=== PATIENT | female | born 1940 | race Caucasian/White ===

== ENCOUNTER 2020-05-26 07:07 | Inpatient (IN) | payer MEDICARE, SELFPAY ==
[2020-05-26] VITALS (11 sets, daily range): BP systolic 115–141; BP diastolic 66–77; PULSE 71–87; RESP 16–19; TEMP 36.4–37; O2SAT 96–99; BMI 19.6
--- NOTE | 2020-05-26 07:40 | ED_ITS ---
HPI - Abdominal Pain General Chief Complaint: Abdominal Pain Stated Complaint: abdominal pain Time Seen by Provider: 05/26/20 07:40 Source: patient Mode of arrival: ambulatory Limitations: no limitations History of Present Illness MD elicited complaint: abdominal pain and other (bloody mucousy stools) Pertinent past history: none Onset (ago): day(s) (3) Pain Consistency: constant Location: RLQ, LLQ and suprapubic Severity: moderate Quality: cramping Radiation: none Migration to: no migration Exacerbating factors: movement Relieving factors: nothing Associated symptoms: nausea, diarrhea, chills, hematochezia and other (also c/o sore throat x 1 week) Treatments prior to arrival: NSAIDs (advil, takes baby ASA no AC therapy) Related Data Allergies Allergy/AdvReac Type Severity Reaction Status Date / Time No Known Allergies Allergy Verified 05/26/20 07:50 Review of Systems Review of Systems Constitutional : No Weight loss, No Fever, No Chills ENT/Mouth : pos sore throat, No Rhinorrhea Eyes: No Swelling, No Redness Cardiovascular : No Chest Pain, No SOB, NoEdema Respiratory : No Cough, No Sputum, No Wheezing Gastrointestinal : Positive Nausea, Positive Vomiting, positive Diarrhea, positive abdominal Pain, pos Hematochezia, No Melena Genitourinary : No Dysuria, No Urinary Frequency, No Hematuria, No Urgency Musculoskeletal : No joint pain, No Myalgias, No Joint Swelling Skin : No Skin Lesions, No rash Neuro : No Weakness, No Numbness, No Dizziness, No Headache Psych : No Anxiety/Panic, No Depression Heme/Lymph: No Bruising, No Lymphadenopathy Endocrine : No Polyuria, No Polydipsia All other systems reviewed and are negative. Physical Exam Vital Signs: Vital Signs: Last Vital Signs Temp 98.6 F 05/26/20 10:48 Pulse 76 05/26/20 10:48 Resp 18 05/26/20 10:48 BP 137/76 05/26/20 10:48 Pulse Ox 96 05/26/20 10:48 Body Mass Index 19.6 Appearance: Alert. Oriented X3. No acute distress. Eyes: Pupils equal, round and reactive to light. ENT: Pharynx normal. Neck: Normal inspection. Neck supple. CVS: Normal heart rate and rhythm. Pulses normal. Respiratory: No respiratory distress. Breath sounds normal. Abdomen: Soft and mild suprapubic tenderness no rebound or guarding. Skin: Skin warm and dry. Normal skin color. Normal skin turgor. Extremities: No lower extremity edema. No calf ttp Neuro: Oriented X 3. No motor deficit. No sensory deficit. Course Course Course Narrative: will admit for further workup and management given colitis, start on empiric antibiotics and keep for fluids and pain control MDM - Abdominal Pain MDM Narrative Medical decision making narrative: 80 yo female with hx of AVR, HPL here with lower abdominal pain x 3 days preceded by sore throat now with bloody mucousy stools - no recent antibiotics will need labs, CT scan for colitis, IVF, cultures, stool studies, IV Morphine for pain, dispo per results and findings, on baby ASA, has had normal colonoscopy in the past per her Lab Data Result diagrams: 05/26/20 08:18 05/26/20 08:18 Labs: Lab Results 05/26/20 05/26/20 05/26/20 Range/Units 08:17 08:17 08:17 WBC (4.8-10.8) X10*3/uL RBC (4.20-5.50) X10*6/uL Hgb (12.0-16.0) g/dl Hct (37-47) % MCV (80-98) fL MCH (27.0-33.0) pg MCHC (31.0-35.0) g/dl RDW (11.0-16.0) % Plt Count (160-400) X10*3/uL MPV (9.4-12.3) fL Immature Gran % (Auto) (0.0-0.4) % Neut % (Auto) (45-73) % Lymph % (Auto) (20-40) % [place] % (Auto) (2-11) % Eos % (Auto) (0-4) % Baso % (Auto) (0-2) % Lymph # (Auto) (1.2-4.9) X10*3/uL [place] # (Auto) (0.1-1.2) X10*3/uL Eos # (Auto) (0.0-0.4) X10*3/uL Baso # (Auto) (0.0-0.2) X10*3/uL Abs Immat Gran (auto) (0.00-0.03) X10*3/uL Absolute Neuts (auto) (2.0-8.3) X10*3/uL Absolute Nucleated RBC (0.0-0.012) X10*3/uL Nucleated RBC % (auto) (0.0-0.2) /100WBC PT 11.9 (10.8-13.0) SEC INR 1.0 (0.9-1.1) APTT 37.2 (24.1-38.0) SEC Sodium (135-145) mmol/L Potassium (3.3-5.1) mmol/l Chloride (96-108) mmol/L Carbon Dioxide (22-29) mmol/L Anion Gap (12-20) BUN (9-16) mg/dL Creatinine (0.5-1.4) mg/dL Estim Creat Clear Calc Estimated GFR Random Glucose (60-115) mg/dL Lactic Acid 0.8 (0.5-2.0) mmol/L Calcium (8.4-10.2) mg/dL Magnesium 2.1 (1.6-2.6) mg/dL Total Bilirubin 0.5 (0.0-1.0) mg/dL Direct Bilirubin 0.3 (0.0-0.5) mg/dL AST 18 (5-31) U/L ALT 14 (0-31) U/L Alkaline Phosphatase 59 (39-117) U/L Total Protein 6.5 (6.5-8.0) g/dL Albumin 4.0 (3.5-5.0) g/dL Lipase 33 (8-78) U/L Urine Color Urine Appearance Urine pH (5.0-8.0) Ur Specific [place] (1.005-1.025) Urine Protein (NEG-TRACE) MG/DL Urine Glucose (UA) (NEG) MG/DL Urine Ketones (NEG) MG/DL Urine Blood (NEG) Urine Nitrite (NEG) Ur Leukocyte Esterase (NEG) COVID-19 (SHANIQUA) (Negative) COVID-19 Clin Com 05/26/20 05/26/20 05/26/20 Range/Units 08:18 08:18 08:19 WBC 7.7 (4.8-10.8) X10*3/uL RBC 4.32 (4.20-5.50) X10*6/uL Hgb 13.7 (12.0-16.0) g/dl Hct 40.8 (37-47) % MCV 94.4 (80-98) fL MCH 31.7 (27.0-33.0) pg MCHC 33.6 (31.0-35.0) g/dl RDW 13.5 (11.0-16.0) % Plt Count 282 (160-400) X10*3/uL MPV 10.1 (9.4-12.3) fL Immature Gran % (Auto) 0.4 (0.0-0.4) % Neut % (Auto) 66.2 (45-73) % Lymph % (Auto) 12.4 L (20-40) % [place] % (Auto) 17.9 H (2-11) % Eos % (Auto) 2.2 (0-4) % Baso % (Auto) 0.9 (0-2) % Lymph # (Auto) 1.0 L (1.2-4.9) X10*3/uL [place] # (Auto) 1.4 H (0.1-1.2) X10*3/uL Eos # (Auto) 0.2 (0.0-0.4) X10*3/uL Baso # (Auto) 0.1 (0.0-0.2) X10*3/uL Abs Immat Gran (auto) 0.03 (0.00-0.03) X10*3/uL Absolute Neuts (auto) 5.1 (2.0-8.3) X10*3/uL Absolute Nucleated RBC 0.000 (0.0-0.012) X10*3/uL Nucleated RBC % (auto) 0.0 (0.0-0.2) /100WBC PT (10.8-13.0) SEC INR (0.9-1.1) APTT (24.1-38.0) SEC Sodium 141 (135-145) mmol/L Potassium 3.9 (3.3-5.1) mmol/l Chloride 104 (96-108) mmol/L Carbon Dioxide 28 (22-29) mmol/L Anion Gap 13 (12-20) BUN 9 (9-16) mg/dL Creatinine 0.67 (0.5-1.4) mg/dL Estim Creat Clear Calc 54.0 Estimated GFR > 60 Random Glucose 103 (60-115) mg/dL Lactic Acid (0.5-2.0) mmol/L Calcium 9.2 (8.4-10.2) mg/dL Magnesium (1.6-2.6) mg/dL Total Bilirubin (0.0-1.0) mg/dL Direct Bilirubin (0.0-0.5) mg/dL AST (5-31) U/L ALT (0-31) U/L Alkaline Phosphatase (39-117) U/L Total Protein (6.5-8.0) g/dL Albumin (3.5-5.0) g/dL Lipase (8-78) U/L Urine Color Urine Appearance Urine pH (5.0-8.0) Ur Specific [place] (1.005-1.025) Urine Protein (NEG-TRACE) MG/DL Urine Glucose (UA) (NEG) MG/DL Urine Ketones (NEG) MG/DL Urine Blood (NEG) Urine Nitrite (NEG) Ur Leukocyte Esterase (NEG) COVID-19 (SHANIQUA) Negative (Negative) COVID-19 Clin Com See Note 05/26/20 Range/Units 10:23 WBC (4.8-10.8) X10*3/uL RBC (4.20-5.50) X10*6/uL Hgb (12.0-16.0) g/dl Hct (37-47) % MCV (80-98) fL MCH (27.0-33.0) pg MCHC (31.0-35.0) g/dl RDW (11.0-16.0) % Plt Count (160-400) X10*3/uL MPV (9.4-12.3) fL Immature Gran % (Auto) (0.0-0.4) % Neut % (Auto) (45-73) % Lymph % (Auto) (20-40) % [place] % (Auto) (2-11) % Eos % (Auto) (0-4) % Baso % (Auto) (0-2) % Lymph # (Auto) (1.2-4.9) X10*3/uL [place] # (Auto) (0.1-1.2) X10*3/uL Eos # (Auto) (0.0-0.4) X10*3/uL Baso # (Auto) (0.0-0.2) X10*3/uL Abs Immat Gran (auto) (0.00-0.03) X10*3/uL Absolute Neuts (auto) (2.0-8.3) X10*3/uL Absolute Nucleated RBC (0.0-0.012) X10*3/uL Nucleated RBC % (auto) (0.0-0.2) /100WBC PT (10.8-13.0) SEC INR (0.9-1.1) APTT (24.1-38.0) SEC Sodium (135-145) mmol/L Potassium (3.3-5.1) mmol/l Chloride (96-108) mmol/L Carbon Dioxide (22-29) mmol/L Anion Gap (12-20) BUN (9-16) mg/dL Creatinine (0.5-1.4) mg/dL Estim Creat Clear Calc Estimated GFR Random Glucose (60-115) mg/dL Lactic Acid (0.5-2.0) mmol/L Calcium (8.4-10.2) mg/dL Magnesium (1.6-2.6) mg/dL Total Bilirubin (0.0-1.0) mg/dL Direct Bilirubin (0.0-0.5) mg/dL AST (5-31) U/L ALT (0-31) U/L Alkaline Phosphatase (39-117) U/L Total Protein (6.5-8.0) g/dL Albumin (3.5-5.0) g/dL Lipase (8-78) U/L Urine Color YELLOW Urine Appearance CLEAR Urine pH 5.5 (5.0-8.0) Ur Specific [place] <= 1.005 (1.005-1.025) Urine Protein NEG (NEG-TRACE) MG/DL Urine Glucose (UA) NEG (NEG) MG/DL Urine Ketones 15 (NEG) MG/DL Urine Blood NEG (NEG) Urine Nitrite NEG (NEG) Ur Leukocyte Esterase NEG (NEG) COVID-19 (SHANIQUA) (Negative) COVID-19 Clin Com Discharge Plan Discharge Clinical Impression: Pancolitis Abdominal pain Qualifiers: Abdominal location: lower abdomen, unspecified Qualified Code(s): R10.30 - Lower abdominal pain, unspecified Patient Disposition: Admitted As Inpatient [facility] Past Medical History Attestation statement: The following information was validated with the patient. Medical History High cholesterol Surgical History H/O aortic valve repair H/O: hysterectomy Social History Social History (Updated 05/26/20 @ 08:01 by Kendra Esparza DO) Smoking Status: Never smoker Use of substances other than those prescribed or required for medical reasons: No Advance Directives: No Advance Directives Information Provided: Yes
--- NOTE | 2020-05-26 07:50 | CT_ITS ---
EXAMINATION: CT ABDOMEN AND PELVIS WITH CONTRAST CLINICAL INFORMATION: Bloody stools. COMPARISON: None TECHNIQUE: Multidetector volumetric images were obtained from the superior aspect of the liver through the pubic symphysis following administration 85 mL of Omnipaque 350 intravenous contrast. Sagittal and coronal reformatted images were obtained on the technologist's workstation. Oral contrast: No This CT examination was performed using dose optimization techniques as appropriate, variously including the following: *Automated exposure control *Adjustment of mA and/or kV according to patient size (this includes techniques or standardized protocols for targeted exams where dose is matched to indication/reason for exam; i.e. extremities or head) *Use of iterative reconstruction technique DLP: 369 mGy-cm FINDINGS: LUNG BASES: There is minimal dependent atelectasis. LIVER, GALLBLADDER, AND BILIARY TREE: The liver is normal in size, shape, and attenuation. No focal hepatic lesion or biliary ductal dilatation is present. The gallbladder is unremarkable with no evidence of radiopaque gallstones, gallbladder wall thickening, or obvious pericholecystic inflammatory changes. PANCREAS: Unremarkable. SPLEEN: Unremarkable. ADRENAL GLANDS: Unremarkable. KIDNEYS AND URETERS: The kidneys are normal in size, shape, and attenuation. No hydronephrosis, hydroureter, or calculi seen. No perinephric stranding. BLADDER: Unremarkable. GASTROINTESTINAL TRACT: There is scattered stool seen throughout the colon. There is mild mural thickening involving the distal descending, transverse sigmoid colon likely secondary to colitis. There are very few scattered diverticuli in the sigmoid colon. The small bowel loops are normal caliber. ABDOMINAL WALL: No significant hernia is appreciated. LYMPH NODES: Normal. VASCULAR: Unremarkable. PELVIC VISCERA: There is mild thickening of the rectum as well. OSSEOUS STRUCTURES: There are degenerative disc changes L2-L3, L3-L4 and L4-L5 disc levels with vacuum disc phenomena and mild ventral spondylosis. No lytic CT/CT abdomen pelvis w con IMPRESSION: Diffuse colitis involving the descending, left transverse and sigmoid: The rectum. A few scattered diverticuli but no suspicion for diverticulitis.
[2020-05-26] MEDS: Morphine Sulfate 4 MG/ML CARTRIDGE 2 MG IVPUSH (08:22)
[2020-05-26] MEDS: 0.9 % Sodium Chloride 500 ML IV (08:22)
[2020-05-26] MEDS: ondansetron HCL 4 MG/2 ML VIAL IVPUSH (08:23)
[2020-05-26 08:35] LABS: MANUAL DIFF FLAG NO
[2020-05-26 08:45] LABS: Basophils Absolute Auto 0.1 X10*3/uL (0.0-0.2); Basophils Percent Auto 0.9 % (0-2); Eosinophils Absolute Auto 0.2 X10*3/uL (0.0-0.4); Eosinophils Percent Auto 2.2 % (0-4); Hematocrit 40.8 % (37-47); Hemoglobin 13.7 g/dl (12.0-16.0); Imm Gran Abs Auto 0.03 X10*3/uL (0.00-0.03); Imm Gran Pct Auto 0.4 % (0.0-0.4); Lymphocytes Percent Auto 12.4 % (20-40); Mean Corpuscular HGB Conc 33.6 g/dl (31.0-35.0); Mean Corpuscular Hemoglobin 31.7 pg (27.0-33.0); Mean Corpuscular Volume 94.4 fL (80-98); Mean Platelet Volume 10.1 fL (9.4-12.3); Monocytes Absolute Auto 1.4 X10*3/uL (0.1-1.2); Monocytes Percent Auto 17.9 % (2-11); Neutrophils Absolute Auto 5.1 X10*3/uL (2.0-8.3); Neutrophils Percent Auto 66.2 % (45-73); Platelet Count 282 X10*3/uL (160-400); Red Blood Count 4.32 X10*6/uL (4.20-5.50); Red Cell Distribution Width 13.5 % (11.0-16.0); White Blood Count 7.7 X10*3/uL (4.8-10.8)
[2020-05-26 08:47] LABS: Prothrombin Time 11.9 SEC (10.8-13.0)
[2020-05-26 08:47] LABS: COVID-19 Test Negative (Negative)
[2020-05-26 08:50] LABS: Partial Thromboplastin Time 37.2 SEC (24.1-38.0)
[2020-05-26 09:10] LABS: Lactic Acid 0.8 mmol/L (0.5-2.0)
[2020-05-26 09:22] LABS: Anion Gap 13 (12-20); Blood Urea Nitrogen 9 mg/dL (9-16); Calcium 9.2 mg/dL (8.4-10.2); Carbon Dioxide 28 mmol/L (22-29); Chloride 104 mmol/L (96-108); Estimated Glomerular Filt Rate > 60; Glucose Random 103 mg/dL (60-115); Potassium 3.9 mmol/l (3.3-5.1); Sodium 141 mmol/L (135-145)
[2020-05-26 09:26] LABS: Alanine Aminotransferase 14 U/L (0-31); Alkaline Phosphatase 59 U/L (39-117); Aspartate Amino Transferase 18 U/L (5-31); Bilirubin Direct 0.3 mg/dL (0.0-0.5); Bilirubin Total 0.5 mg/dL (0.0-1.0); Lipase 33 U/L (8-78); Magnesium 2.1 mg/dL (1.6-2.6); Total Protein 6.5 g/dL (6.5-8.0)
[2020-05-26] MEDS: iohexoL 350 MG/ML 100 ML INFUS..BTL IV (09:54)
[2020-05-26 10:45] LABS: Glucose Urine UA NEG (NEG); Leukocyte Esterase Urine NEG (NEG); Nitrite Urine NEG (NEG); PH 5.5 (5.0-8.0); Specific Gravity - Urine <= 1.005 (1.005-1.025); Urine Blood NEG (NEG); Urine Ketones 15 MG/DL (NEG); Urine Protein NEG (NEG-TRACE)
[2020-05-26 10:57] LABS: Appearance Urine CLEAR; Color Urine YELLOW
[2020-05-26] MEDS: levoFLOXacin/D5W 250 MG/50 ML PIGGYBACK 50 MG IV (11:12)
[2020-05-26 11:28] LABS: OBS Int Ctl Valid YES; OBS1 NEG (NEG)
--- NOTE | 2020-05-26 11:40 | PM.IMHP ---
History of Present Illness Date of Service: 05/26/20 Chief Complaint: Abdominal pain This is an 80-year-old female with a history of bovine aortic valve who presents to the emergency department with abdominal pain. She reports intermittent abdominal pain over the past month or so. For the past 1 week the pain has become more severe. She describes the pain as crampy and sharp in nature and worse in her left lower quadrant but present in bilateral lower quadrants. She reports she has had associated diarrhea with mucus numerous times a day. This morning she had an episode of diarrhea mixed with maroon stool. She has been able to tolerate liquid and denies any vomiting. She has had no previous similar episodes in the past. She has never seen a GI doctor. She denies any associated fever or chills. Today in emergency department she was afebrile. Labs were unremarkable. CT scan revealed diffuse colitis. She denies recent antibiotic use or recent hospitalization. She was started on IV antibiotics and decision was made to admit her for further workup. Review of Systems Review of Systems: Yes all other systems are reviewed and are negative Constitutional: Constitutional: Denies chills and Denies fever(s) Cardiovascular: Cardiovascular: Denies chest pain and Denies dyspnea Respiratory: Respiratory: Denies cough and Denies dyspnea Gastrointestinal: Gastrointestinal: Reports abdominal pain, Reports diarrhea, Denies nausea and Denies vomiting [facility] Medical History (Updated 05/26/20 @ 11:50 by ADRIANE Salguero) High cholesterol Functional capacity: independent ambulation Family History Mother Glioblastoma Surgical History H/O aortic valve repair H/O: hysterectomy Social History (Updated 05/26/20 @ 11:48 by ADRIANE Salguero) Alcohol intake: current Alcohol intake frequency: 0-2 drinks per day Smoking Status: Never smoker Use of substances other than those prescribed or required for medical reasons: No Advance Directives: No Advance Directives Information Provided: Yes Meds Allergies Allergy/AdvReac Type Severity Reaction Status Date / Time No Known Allergies Allergy Verified 05/26/20 07:50 Home Medications Medication Instructions Recorded Confirmed Type aspirin 81 mg PO DAILY 05/26/20 05/26/20 History ezetimibe 10 mg PO DAILY 05/26/20 05/26/20 History multivitamin 1 tab PO DAILY 05/26/20 05/26/20 History pravastatin 20 mg PO DAILY 05/26/20 05/26/20 History Physical Exam Vital Signs and Narrative: Vital Signs: Last Vital Signs Temp 98.6 F 05/26/20 10:48 Pulse 76 05/26/20 10:48 Resp 18 05/26/20 10:48 BP 137/76 05/26/20 10:48 Pulse Ox 96 05/26/20 10:48 Body Mass Index 19.6 Const: Nutritional Appearance: well nourished Orientation/consciousness: patient oriented x3 HENMT: Head: Yes normocephalic and Yes atraumatic Eyes: Sclerae: sclerae normal Chest: Chest palpation & inspection: normal inspection of the chest Resp: Effort & Inspection: normal respiratory effort and no respiratory distress Auscultation: clear to auscultation bilaterally Cardio: Rate: regular rate Rhythm: regular rhythm Heart sounds: Murmur heart sound present GI: Palpation (GI): Soft to palpation and nontender Skin: General skin exam: no rashes or lesions noted Neuro: General: patient oriented x3 Cranial nerves: Yes CN's II-XII intact bilaterally and Yes Bilaterally intact EOM present Extrem: General: Yes normal to inspection Results Labs CBC and Chem 7: 05/26/20 08:18 05/26/20 08:18 Labs: Laboratory Results - last 24 hr 05/26/20 05/26/20 05/26/20 08:17 08:17 08:17 MCV MCH MCHC RDW Plt Count MPV Immature Gran % (Auto) Neut % (Auto) Lymph % (Auto) [place] % (Auto) Eos % (Auto) Baso % (Auto) Lymph # (Auto) [place] # (Auto) Eos # (Auto) Baso # (Auto) Abs Immat Gran (auto) Absolute Neuts (auto) Absolute Nucleated RBC Nucleated RBC % (auto) PT 11.9 INR 1.0 APTT 37.2 Anion Gap Estim Creat Clear Calc Estimated GFR Random Glucose Lactic Acid 0.8 Calcium Magnesium 2.1 Total Bilirubin 0.5 Direct Bilirubin 0.3 AST 18 ALT 14 Alkaline Phosphatase 59 Total Protein 6.5 Albumin 4.0 Lipase 33 Urine Color Urine Appearance Urine pH Ur Specific [place] Urine Protein Urine Glucose (UA) Urine Ketones Urine Blood Urine Nitrite Ur Leukocyte Esterase Stool Occult Blood COVID-19 (SHANIQUA) COVID-19 Clin Com 05/26/20 05/26/20 05/26/20 08:18 08:18 08:19 MCV 94.4 MCH 31.7 MCHC 33.6 RDW 13.5 Plt Count 282 MPV 10.1 Immature Gran % (Auto) 0.4 Neut % (Auto) 66.2 Lymph % (Auto) 12.4 L [place] % (Auto) 17.9 H Eos % (Auto) 2.2 Baso % (Auto) 0.9 Lymph # (Auto) 1.0 L [place] # (Auto) 1.4 H Eos # (Auto) 0.2 Baso # (Auto) 0.1 Abs Immat Gran (auto) 0.03 Absolute Neuts (auto) 5.1 Absolute Nucleated RBC 0.000 Nucleated RBC % (auto) 0.0 PT INR APTT Anion Gap 13 Estim Creat Clear Calc 54.0 Estimated GFR > 60 Random Glucose 103 Lactic Acid Calcium 9.2 Magnesium Total Bilirubin Direct Bilirubin AST ALT Alkaline Phosphatase Total Protein Albumin Lipase Urine Color Urine Appearance Urine pH Ur Specific [place] Urine Protein Urine Glucose (UA) Urine Ketones Urine Blood Urine Nitrite Ur Leukocyte Esterase Stool Occult Blood COVID-19 (SHANIQUA) Negative COVID-19 Clin Com See Note 05/26/20 05/26/20 10:23 10:53 MCV MCH MCHC RDW Plt Count MPV Immature Gran % (Auto) Neut % (Auto) Lymph % (Auto) [place] % (Auto) Eos % (Auto) Baso % (Auto) Lymph # (Auto) [place] # (Auto) Eos # (Auto) Baso # (Auto) Abs Immat Gran (auto) Absolute Neuts (auto) Absolute Nucleated RBC Nucleated RBC % (auto) PT INR APTT Anion Gap Estim Creat Clear Calc Estimated GFR Random Glucose Lactic Acid Calcium Magnesium Total Bilirubin Direct Bilirubin AST ALT Alkaline Phosphatase Total Protein Albumin Lipase Urine Color YELLOW Urine Appearance CLEAR Urine pH 5.5 Ur Specific [place] <= 1.005 Urine Protein NEG Urine Glucose (UA) NEG Urine Ketones 15 Urine Blood NEG Urine Nitrite NEG Ur Leukocyte Esterase NEG Stool Occult Blood NEG COVID-19 (SHANIQUA) COVID-19 Clin Com Imaging Radiologist's Impressions: Impressions Abdomen/Pelvis CT 05/26/20 07:50 IMPRESSION: Diffuse colitis involving the descending, left transverse and sigmoid: The rectum. A few scattered diverticuli but no suspicion for diverticulitis. Assessment and Plan (1) Colitis: Status: Acute This is an 80-year-old female with history of dyslipidemia and bovine aortic valve replacement who presents the emergency department with abdominal pain found to have colitis Colitis No evidence of sepsis Lactic acid normal Infectious versus inflammatory versus ischemic IV antibiotics Clear liquid diet GI evaluation Stool studies HLD continue home statin, zetia DVT prophylaxis-mechanical devices This case was discussed with Dr. Humphreys
--- NOTE | 2020-05-26 11:53 | PM.EVENT ---
Event Note Date of Service: 05/26/20 Event Note: Patient seen and examined independently and was present during aranda portion of E/M service. Agree with midlevel's history, physical, assessment, and plan. 80F prsented with mucus and blood in stool left sided colitis ischemic vs infectious vs inflammatory anitiboics ivf gi eval check cdif, stool cultures
[2020-05-26] MEDS: metroNIDAZOLE/NS 500 MG/100 ML PIGGYBACK 100 MG IV ×2 (12:20→19:31)
[2020-05-26 13:26] LABS: C Reactive Protein 1.47 mg/dL (< or = 0.50); Lactate Dehydrogenase 205 U/L (122-220)
--- NOTE | 2020-05-26 14:12 | PC.NURSE ---
Nurse to nurse report called to Carmen on . pt PMH, presentation, treatments, condition and VS trends reviewed.
--- NOTE | 2020-05-26 15:02 | PM.GICN ---
History of Present Illness Data of Consult Service Date: 05/26/20 Requesting physician: Sheree Boykin Primary Care Provider: Ashwin Phoenix MD [facility] Reason for consult: Abdominal pain and CT that raises ? colitis. 80 yo female who was sitting in chair wrapped up in her jacket, looking tired. She was very slow with her responses. History obtained directly from this nice lady was limited. Most of hx is obtained through EMR from ER and admission. There had been diarrhea and at least one(?) of mucous with maroun stool. She had been experiencing lower abdominal pain. No documented fevers. Review of Systems Review of Systems: Yes Unobtainable due to mental status (Patient very anxious having trouble with specific answers @ this time.) Cardiovascular: Cardiovascular: Reports Abdominal Distension and Denies chest pain Respiratory: Respiratory: Reports no additional respiratory complaints Comments: when talking she seems short of breath but denies trouble breathing Gastrointestinal: Gastrointestinal: Reports abdominal pain, Reports GI cramping and Reports other Comments: she is rubbing her lower abdominal suprpubic area. Psychiatric: Psychiatric: Reports anxiety PMFSH Past Medical History Medical History (Updated 05/28/20 @ 07:15 by Twyla Smith MD) High cholesterol Hx of aortic valve stenosis Functional capacity: independent ambulation Family History Family History Mother Glioblastoma Surgical History Surgical History (Updated 05/28/20 @ 09:12 by Twyla Smith MD) H/O aortic valve repair H/O: hysterectomy Hx of colonoscopy Social History Social History (Updated 05/26/20 @ 11:48 by ADRIANE Salguero) Household Members: None Housing: House Do you presently have visiting nurse or other home services: No Alcohol intake: current Alcohol intake frequency: 0-2 drinks per day Smoking Status: Never smoker Use of substances other than those prescribed or required for medical reasons: No Currently Displaying Signs/Symptoms of Drug Intoxication Withdrawal: No Have you been hit, kicked, punched, or otherwise hurt by someone within the past year? If so, by whom?: No Do you feel safe in your current relationship?: No Current Relationship Is there a partner from a previous relationship who is making you feel unsafe now?: No Are you made to feel afraid or neglected: No Advance Directives: No Advance Directives Information Provided: Yes Do you have thoughts of harming others: None Do you have a plan to hurt others: No Plan Recently lost weight without trying: No Meds Allergies Allergy/AdvReac Type Severity Reaction Status Date / Time No Known Allergies Allergy Verified 05/26/20 07:50 Home Medications Medication Instructions Recorded Confirmed Type aspirin 81 mg PO DAILY 05/26/20 05/26/20 History ezetimibe 10 mg PO DAILY 05/26/20 05/26/20 History multivitamin 1 tab PO DAILY 05/26/20 05/26/20 History pravastatin 20 mg PO DAILY 05/26/20 05/26/20 History Physical Exam Vital Signs: Vital Signs: Last Vital Signs Temp 98.3 F 05/26/20 12:00 Pulse 71 05/26/20 13:23 Resp 16 05/26/20 13:23 BP 115/67 05/26/20 13:23 Pulse Ox 98 05/26/20 13:23 Body Mass Index 19.6 Const: General: cooperative, in distress, anxious and tired appearing Orientation/consciousness: patient oriented x3 Resp: Effort & Inspection: normal respiratory effort, not able to speak in complete sentences, no audible wheezes and no cough Cardio: Rate: regular rate Rhythm: regular rhythm Heart sounds: Murmur heart sound present Neuro: General: patient oriented x3 Extrem: General: Yes no clubbing, cyanosis or edema Results Labs CBC & Chem 7: 05/28/20 07:11 05/28/20 07:11 Labs: Short CBC 05/26/20 Range/Units 08:18 WBC 7.7--no SHIFT (4.8-10.8) X10*3/uL Hgb 13.7 (12.0-16.0) g/dl Hct 40.8 (37-47) % Plt Count 282 (160-400) X10*3/uL BMP 05/26/20 08:18 Sodium 141 Potassium 3.9 Chloride 104 Carbon Dioxide 28 BUN 9 Creatinine 0.67 Calcium 9.2 Liver Function 05/26/20 Range/Units 08:17 Total Bilirubin 0.5 (0.0-1.0) mg/dL Direct Bilirubin 0.3 (0.0-0.5) mg/dL AST 18 (5-31) U/L ALT 14 (0-31) U/L Alkaline Phosphatase 59 (39-117) U/L Albumin 4.0 (3.5-5.0) g/dL Urine 05/26/20 Range/Units 10:23 Urine Color YELLOW Urine Appearance CLEAR Urine pH 5.5 (5.0-8.0) Ur Specific [place] <= 1.005 (1.005-1.025) Urine Protein NEG (NEG-TRACE) MG/DL Urine Glucose (UA) NEG (NEG) MG/DL crp: >1.47 COVID neg x1, Heme NEG. Imaging CT scan - abdomen: Radiologist's impression: CT/CT abdomen pelvis w con IMPRESSION: Diffuse colitis involving the descending, left transverse and sigmoid: The rectum. A few scattered diverticuli but no suspicion for diverticulitis. Dictated By:TERRI JONES MD Signed By:<Electronically signed by TERRI JONES MD in [place]>05/26/20 Assessment and Plan (1) Colitis: Problem details: Patient seems to have an acute illness that maybe consistent with an infectious vs inflamatory process. Would do stool C&S, stool wbc, C. dif study. Recheck labs in AM, follow temps closely. Enteric viral infections can not always be identified. I am on the weekend will follow. Status: Acute (2) Abdominal pain: Qualifiers: Abdominal location: lower abdomen, unspecified Qualified Code(s): R10.30 - Lower abdominal pain, unspecified Problem details: She seems to have lower abdominal ? crampy discomfort. She appears fatigued. Her hx is vague. Any temp spike would do blood cultures. Status: Acute
[2020-05-26] MEDS: Lactated Ringers 1,000 ML 80 ML IVCONT (15:47)
[2020-05-26] MEDS: 0.9 % Sodium Chloride Flush 3 ML SYRINGE IVFLUSH (15:47)
[2020-05-26 21:00] LABS: Leukocytes Stool Qualitative NEGATIVE (NEGATIVE)
[2020-05-26 21:15] LABS: CDIFF Ag Negative (Negative); CDIFF Internal ctrl Dots and bkg OK (V); CDiff Toxin Negative (Negative)
[2020-05-27 03:22] VITALS: BP 131/76; PULSE 77; RESP 19; TEMP 36.8; O2SAT 96
[2020-05-27] MEDS: metroNIDAZOLE/NS 500 MG/100 ML PIGGYBACK 100 MG IV ×3 (03:56→20:55)
[2020-05-27] MEDS: Morphine Sulfate 2 MG/ML CARTRIDGE IVPUSH ×3 (04:02→21:09)
[2020-05-27] MEDS: Lactated Ringers 1,000 ML 80 ML IVCONT ×2 (04:09→22:19)
[2020-05-27 07:18] LABS: MANUAL DIFF FLAG NO
[2020-05-27 07:27] LABS: Basophils Absolute Auto 0.1 X10*3/uL (0.0-0.2); Eosinophils Absolute Auto 0.2 X10*3/uL (0.0-0.4); Eosinophils Percent Auto 2.9 % (0-4); Hematocrit 37.8 % (37-47); Hemoglobin 12.6 g/dl (12.0-16.0); Imm Gran Abs Auto 0.02 X10*3/uL (0.00-0.03); Imm Gran Pct Auto 0.3 % (0.0-0.4); Lymphocytes Absolute Auto 1.4 X10*3/uL (1.2-4.9); Lymphocytes Percent Auto 23.9 % (20-40); Mean Corpuscular HGB Conc 33.3 g/dl (31.0-35.0); Mean Corpuscular Hemoglobin 31.2 pg (27.0-33.0); Mean Corpuscular Volume 93.6 fL (80-98); Mean Platelet Volume 9.8 fL (9.4-12.3); Monocytes Absolute Auto 1.1 X10*3/uL (0.1-1.2); Neutrophils Absolute Auto 3.2 X10*3/uL (2.0-8.3); Neutrophils Percent Auto 53.9 % (45-73); Platelet Count 264 X10*3/uL (160-400); Red Blood Count 4.04 X10*6/uL (4.20-5.50); Red Cell Distribution Width 13.4 % (11.0-16.0); White Blood Count 5.9 X10*3/uL (4.8-10.8)
[2020-05-27] MEDS: Multivitamin TABLET 1 TAB PO (07:46)
[2020-05-27] MEDS: Ezetimibe 10 MG TABLET PO (07:46)
[2020-05-27] MEDS: Pravastatin Sodium 20 MG TABLET PO (07:46)
[2020-05-27 07:55] LABS: Anion Gap 12 (12-20); Blood Urea Nitrogen 5 mg/dL (9-16); Calcium 8.4 mg/dL (8.4-10.2); Carbon Dioxide 28 mmol/L (22-29); Chloride 104 mmol/L (96-108); Creatinine Clr Calc Pharmacy 57.5; Estimated Glomerular Filt Rate > 60; Glucose Random 89 mg/dL (60-115); Potassium 3.8 mmol/l (3.3-5.1); Sodium 140 mmol/L (135-145)
[2020-05-27 07:56] VITALS: BP 131/74; PULSE 100; RESP 18; TEMP 36.3; O2SAT 96
--- NOTE | 2020-05-27 09:57 | HO.PM.IMPN ---
Subjective Subjective Date of Service: 05/27/20 Interval History: feeling better, still with diarrhea Cardiovascular Cardiovascular: Reports no additional cardiovascular complaints Respiratory Respiratory: Reports no additional respiratory complaints Physical Exam Vital Signs: Vital Signs: Last Vital Signs Temp 97.4 F 05/27/20 07:56 Pulse 100 05/27/20 07:56 Resp 18 05/27/20 07:56 BP 131/74 05/27/20 07:56 Pulse Ox 96 05/27/20 07:56 Body Mass Index 19.6 General: AO X 3, no acute distress Resp: CTA bilateral CVS: S1,S2,RRR GI: soft, non tender, non distended Neuro: motor grossly intact Psych: appropriate affect Objective Data Current Medications Generic Name Dose Route Start Last Admin Trade Name Freq PRN Reason Stop Dose Admin Acetaminophen 650 mg 05/26/20 15:24 Acetaminophen 325 Mg Tablet PO Q6H PRN Pain, Mild (Pain Scale 1-3) Docusate Sodium 100 mg 05/26/20 15:24 Docusate Sodium 100 Mg Capsule PO DAILY PRN Constipation Ezetimibe 10 mg 05/27/20 09:00 05/27/20 07:46 Ezetimibe 10 Mg Tablet PO 10 mg DAILY ERICH Administration Levofloxacin 500 mg in 100 mls @ 100 mls/hr 05/27/20 12:00 Levaquin IV Q24H ERICH Metronidazole 500 mg in 100 mls @ 100 mls/hr 05/26/20 20:00 05/27/20 05:04 Flagyl IV Infused Q8H ERICH Infusion Lactated Ringer's 1,000 mls @ 80 mls/hr 05/26/20 15:24 05/27/20 04:09 Lr IVCONT 80 mls/hr .[id number] ERICH Administration Morphine Sulfate 2 mg 05/26/20 15:24 05/27/20 04:02 Morphine Sulfate 2 Mg/Ml Cartridge IVPUSH 2 mg Q4H PRN Administration Pain, Severe (Pain Scale 7-10) Multivitamins/Vitamin C 1 tab 05/27/20 09:00 05/27/20 07:46 Multivitamin Tablet PO 1 tab DAILY ERICH Administration Ondansetron HCl 4 mg 05/26/20 15:24 Ondansetron Hcl 4 Mg/2 Ml Vial IVPUSH Q8H PRN Nausea and Vomiting Pharmacy Consult 1 each 05/26/20 11:42 Consult Rx Perform Med Rec MISCELLANE ONCE PRN Consult order Pravastatin Sodium 20 mg 05/27/20 09:00 05/27/20 07:46 Pravastatin Sodium 20 Mg Tablet PO 20 mg DAILY ERICH Administration Sodium Chloride 3 ml 05/26/20 16:00 05/27/20 07:49 0.9 % Sodium Chloride Flush 3 Ml Syringe IVFLUSH Not Given QSHIFT [facility] Labs CBC & Chem 7: 05/27/20 06:50 05/27/20 06:50 Assessment and Plan (1) Colitis: Problem details: Patient seems to have an acute illness that maybe consistent with an infectious vs inflamatory process. Would do stool C&S, stool wbc, C. dif study. Recheck labs in AM, follow temps closely. Enteric viral infections can not always be identified. AM on the weekend will follow. Status: Acute (2) Abdominal pain: Problem details: She seems to have lower abdominal ? crampy discomfort. She appears fatigue. Her hx is vague. Any temp spike would do blood cultures. Status: Acute Assessment and Plan: 80F presented with mucusy and blood stools left sided Colitis Infectious versus inflammatory versus ischemic cdif negative continue levaquin and flagyl, follow up stool cultures, GI Clear liquid diet for now HLD statin, zetia
[2020-05-27] MEDS: levoFLOXacin/D5W 500 MG/100 ML PIGGYBACK 100 MG IV (11:19)
[2020-05-27 11:52] VITALS: BP 119/67; PULSE 64; RESP 18; TEMP 36.4; O2SAT 96
[2020-05-27 16:00] VITALS: BP 140/73; PULSE 77; RESP 18; TEMP 36.2; O2SAT 97
[2020-05-27 18:47] VITALS: BP 146/65; PULSE 75; RESP 19; TEMP 36.6; O2SAT 96
[2020-05-27 23:08] VITALS: BP 131/70; PULSE 68; RESP 19; TEMP 36.7; O2SAT 96
[2020-05-28 03:46] VITALS: BP 138/71; PULSE 75; RESP 20; TEMP 36.3; O2SAT 99
[2020-05-28] MEDS: metroNIDAZOLE/NS 500 MG/100 ML PIGGYBACK 100 MG IV ×3 (03:53→20:08)
[2020-05-28 07:25] VITALS: BP 146/65; PULSE 75; RESP 18; TEMP 36.5; O2SAT 96
[2020-05-28 07:48] LABS: MANUAL DIFF FLAG NO
[2020-05-28 07:51] LABS: Basophils Absolute Auto 0.1 X10*3/uL (0.0-0.2); Basophils Percent Auto 0.9 % (0-2); Eosinophils Absolute Auto 0.1 X10*3/uL (0.0-0.4); Eosinophils Percent Auto 1.5 % (0-4); Hematocrit 35.9 % (37-47); Hemoglobin 12.4 g/dl (12.0-16.0); Imm Gran Abs Auto 0.02 X10*3/uL (0.00-0.03); Imm Gran Pct Auto 0.4 % (0.0-0.4); Lymphocytes Absolute Auto 0.8 X10*3/uL (1.2-4.9); Lymphocytes Percent Auto 15.4 % (20-40); Mean Corpuscular HGB Conc 34.5 g/dl (31.0-35.0); Mean Corpuscular Hemoglobin 31.8 pg (27.0-33.0); Mean Corpuscular Volume 92.1 fL (80-98); Mean Platelet Volume 10.1 fL (9.4-12.3); Monocytes Absolute Auto 0.8 X10*3/uL (0.1-1.2); Monocytes Percent Auto 15.3 % (2-11); Neutrophils Absolute Auto 3.6 X10*3/uL (2.0-8.3); Neutrophils Percent Auto 66.5 % (45-73); Platelet Count 275 X10*3/uL (160-400); Red Cell Distribution Width 13.2 % (11.0-16.0); White Blood Count 5.4 X10*3/uL (4.8-10.8)
[2020-05-28] MEDS: Ezetimibe 10 MG TABLET PO (08:16)
[2020-05-28] MEDS: Multivitamin TABLET 1 TAB PO (08:16)
[2020-05-28] MEDS: Pravastatin Sodium 20 MG TABLET PO (08:17)
[2020-05-28 08:18] LABS: Anion Gap 13 (12-20); Blood Urea Nitrogen 4 mg/dL (9-16); Calcium 8.4 mg/dL (8.4-10.2); Carbon Dioxide 26 mmol/L (22-29); Chloride 104 mmol/L (96-108); Creatinine Clr Calc Pharmacy 62.4; Estimated Glomerular Filt Rate > 60; Glucose Fasting 109 mg/dL (60-99); Potassium 3.5 mmol/l (3.3-5.1); Sodium 139 mmol/L (135-145)
[2020-05-28] MEDS: Acetaminophen 325 MG TABLET 650 MG PO ×2 (08:41→12:25)
--- NOTE | 2020-05-28 10:05 | HO.PM.IMPN ---
Subjective Subjective Date of Service: 05/28/20 Interval History: still with diarrhea Cardiovascular Cardiovascular: Reports no additional cardiovascular complaints Genitourinary Genitourinary: Reports no additional female genitourinary complaints Physical Exam Vital Signs: Vital Signs: Last Vital Signs Temp 97.7 F 05/28/20 07:25 Pulse 75 05/28/20 07:25 Resp 18 05/28/20 07:25 BP 146/65 H 05/28/20 07:25 Pulse Ox 96 05/28/20 07:25 Body Mass Index 19.6 General: AO X 3, no acute distress Resp: CTA bilateral CVS: S1,S2,RRR GI: soft, non tender, non distended Neuro: motor grossly intact Psych: appropriate affect Objective Data Current Medications Generic Name Dose Route Start Last Admin Trade Name Freq PRN Reason Stop Dose Admin Acetaminophen 650 mg 05/26/20 15:24 05/28/20 08:41 Acetaminophen 325 Mg Tablet PO 650 mg Q6H PRN Administration Pain, Mild (Pain Scale 1-3) Docusate Sodium 100 mg 05/26/20 15:24 Docusate Sodium 100 Mg Capsule PO DAILY PRN Constipation Ezetimibe 10 mg 05/27/20 09:00 05/28/20 08:16 Ezetimibe 10 Mg Tablet PO 10 mg DAILY ERICH Administration Levofloxacin 500 mg in 100 mls @ 100 mls/hr 05/27/20 12:00 05/27/20 12:38 Levaquin IV Infused Q24H ERICH Infusion Metronidazole 500 mg in 100 mls @ 100 mls/hr 05/26/20 20:00 05/28/20 05:18 Flagyl IV Infused Q8H ERICH Infusion Lactated Ringer's 1,000 mls @ 80 mls/hr 05/26/20 15:24 05/27/20 22:19 Lr IVCONT 80 mls/hr .[id number] ERICH Administration Morphine Sulfate 2 mg 05/26/20 15:24 05/27/20 21:09 Morphine Sulfate 2 Mg/Ml Cartridge IVPUSH 2 mg Q4H PRN Administration Pain, Severe (Pain Scale 7-10) Multivitamins/Vitamin C 1 tab 05/27/20 09:00 05/28/20 08:16 Multivitamin Tablet PO 1 tab DAILY ERICH Administration Ondansetron HCl 4 mg 12/11/20 15:24 Ondansetron Hcl 4 Mg/2 Ml Vial IVPUSH Q8H PRN Nausea and Vomiting Pharmacy Consult 1 each 05/26/20 11:42 Consult Rx Perform Med Rec MISCELLANE ONCE PRN Consult order Pravastatin Sodium 20 mg 05/27/20 09:00 05/28/20 08:17 Pravastatin Sodium 20 Mg Tablet PO 20 mg DAILY ERICH Administration Sodium Chloride 3 ml 05/26/20 16:00 05/28/20 08:18 0.9 % Sodium Chloride Flush 3 Ml Syringe IVFLUSH Not Given QSHIFT [facility] Labs CBC & Chem 7: 05/28/20 07:11 05/28/20 07:11 Microbiology Microbiology Results: Microbiology 05/27/20 07:53 Stool Stool Culture - Preliminary Normal so far. 05/26/20 09:38 Blood - Venous Blood Culture - Preliminary No growth after 24 hours. 05/26/20 09:30 Blood - Venous Blood Culture - Preliminary No growth after 24 hours. Assessment and Plan (1) Colitis: Problem details: Patient seems to have an acute illness that maybe consistent with an infectious vs inflamatory process. Would do stool C&S, stool wbc, C. dif study. Recheck labs in AM, follow temps closely. Enteric viral infections can not always be identified. I am on the weekend will follow. Status: Acute (2) Abdominal pain: Problem details: She seems to have lower abdominal ? crampy discomfort. She appears fatigued. Her hx is vague. Any temp spike would do blood cultures. Status: Acute Assessment and Plan: 80F presented with mucusy and blood stools left sided Colitis Infectious versus inflammatory versus ischemic cdif negative, wbc negative, culture no growth to date continue levaquin and flagyl, follow up GI Clear liquid diet for now HLD statin, zetia
--- NOTE | 2020-05-28 11:38 | P.PNGI_ITS ---
Subjective Subjective Date of Service: 05/28/20 Interval History: Patient has been having increased urgency with difficulty getting to the bathroom on time. She is having episodic abdominal crampy pain. With this she has to move quickly to the bathroom. She was having some problems like this @ home but not as intense until the morning she came to the ER. That movement had a lot of bleeding associated with it. Recent bout of Laryngitis. She was treating wit Chloraseptic spray and Listerine gargling. No antibx. No travel. She cooks her own food. Some recent decrease in appetite. Physical Exam Vital Signs: Vital Signs: Last Vital Signs Temp 97.7 F 05/28/20 07:25 Pulse 75 05/28/20 07:25 Resp 18 05/28/20 07:25 BP 146/65 H 05/28/20 07:25 Pulse Ox 96 05/28/20 07:25 Body Mass Index 19.6 Const: General: cooperative and anxious Nutritional Appearance: average body habitus Limitations: no limitations Resp: Effort & Inspection: normal respiratory effort and able to speak in complete sentences Cardio: Rate: regular rate Rhythm: regular rhythm GI: Palpation (GI): Soft to palpation, nontender and no guarding Rectal Exam - Female: abnormal sphincter tone (decreased tone) Rectal exam abnormal sphincter tone - female: decreased, External hemorrhoid(s) present (skin tags noted.), Internal hemorrhoid(s) present (no large noted), No fecal impaction, No heme negative stool and No mass Objective Data Labs CBC & Chem 7: 05/28/20 07:11 05/28/20 07:11 Labs: Laboratory Results - last 24 hr 05/28/20 05/28/20 07:11 07:11 WBC 5.4 RBC 3.90 L Hgb 12.4 Hct 35.9 L MCV 92.1 MCH 31.8 MCHC 34.5 RDW 13.2 Plt Count 275 MPV 10.1 Immature Gran % (Auto) 0.4 Neut % (Auto) 66.5 Lymph % (Auto) 15.4 L [place] % (Auto) 15.3 H Eos % (Auto) 1.5 Baso % (Auto) 0.9 Lymph # (Auto) 0.8 L [place] # (Auto) 0.8 Eos # (Auto) 0.1 Baso # (Auto) 0.1 Abs Immat Gran (auto) 0.02 Absolute Neuts (auto) 3.6 Absolute Nucleated RBC 0.000 Nucleated RBC % (auto) 0.0 Sodium 139 Potassium 3.5 Chloride 104 Carbon Dioxide 26 Anion Gap 13 BUN 4 L Creatinine 0.58 Estim Creat Clear Calc 62.4 Estimated GFR > 60 Fasting Glucose 109 H Calcium 8.4 Microbiology Microbiology Results: Microbiology 05/26/20 09:30 Blood - Venous Blood Culture - Preliminary No growth after 48 hours. 05/27/20 07:53 Stool Stool Culture - Preliminary Normal so far. 05/26/20 09:38 Blood - Venous Blood Culture - Preliminary No growth after 24 hours. Progress Note: A&P Assessment and plan (1) Colitis: Problem details: Patient seems to have an acute illness that maybe consistent with an infectious vs inflamatory vs ischemic process. Status: Acute Assessment and Plan: Patient has had no fever--did admit to chills last PM. Stool studies so far hare ve been negative. Will review. Try a full liquid diet. Await rest of studies. Recheck CRP and stool hemoccults. (2) Abdominal pain: Problem details: She seems to have lower abdominal ? crampy discomfort. Intensity still seems significant. She may very well need a colonoscopy to be done Friday if none of the testing reveals an etiology. Status: Acute Assessment and Plan: She continues to have lower abdominal pain. Intensity seems significant. She will probably need a colonoscopy ? 05/30? if symptoms persist and cultures felecia nue to be neg. I did discuss this with the patient. Fall Risk Details Current Medications: Current Medications Generic Name Dose Route Start Last Admin Trade Name Lizbeth PRN Reason Stop Dose Admin Acetaminophen 650 mg 05/26/20 15:24 05/28/20 08:41 Acetaminophen 325 Mg Tablet PO 650 mg Q6H PRN Administration Pain, Mild (Pain Scale 1-3) Docusate Sodium 100 mg 05/26/20 15:24 Docusate Sodium 100 Mg Capsule PO DAILY PRN Constipation Ezetimibe 10 mg 05/27/20 09:00 05/28/20 08:16 Ezetimibe 10 Mg Tablet PO 10 mg DAILY ERICH Administration Levofloxacin 500 mg in 100 mls @ 100 mls/hr 05/27/20 12:00 05/27/20 12:38 Levaquin IV Infused Q24H ERICH Infusion Metronidazole 500 mg in 100 mls @ 100 mls/hr 05/26/20 20:00 05/28/20 05:18 Flagyl IV Infused Q8H ERICH Infusion Lactated Ringer's 1,000 mls @ 80 mls/hr 05/26/20 15:24 05/27/20 22:19 Lr IVCONT 80 mls/hr .[id number] ERICH Administration Morphine Sulfate 2 mg 05/26/20 15:24 05/27/20 21:09 Morphine Sulfate 2 Mg/Ml Cartridge IVPUSH 2 mg Q4H PRN Administration Pain, Severe (Pain Scale 7-10) Multivitamins/Vitamin C 1 tab 05/27/20 09:00 05/28/20 08:16 Multivitamin Tablet PO 1 tab DAILY ERICH Administration Ondansetron HCl 4 mg 05/26/20 15:24 Ondansetron Hcl 4 Mg/2 Ml Vial IVPUSH Q8H PRN Nausea and Vomiting Pharmacy Consult 1 each 05/26/20 11:42 Consult Rx Perform Med Rec MISCELLANE ONCE PRN Consult order Pravastatin Sodium 20 mg 05/27/20 09:00 05/28/20 08:17 Pravastatin Sodium 20 Mg Tablet PO 20 mg DAILY ERICH Administration Sodium Chloride 3 ml 05/26/20 16:00 05/28/20 08:18 0.9 % Sodium Chloride Flush 3 Ml Syringe IVFLUSH Not Given QSHIFT ERICH Time Spent With Patient Time: Total time spent is greater than 50% in coordination of care (as documented) at patient's floor/unit and/or counseling patient: on causes of abdominal pain, increased frequency of stool, etc.; record and imaging review. Time with patient: 15 - 24 minutes
[2020-05-28 12:00] VITALS: BP 163/84; PULSE 78; RESP 18; TEMP 36.7; O2SAT 100
[2020-05-28] MEDS: Lactated Ringers 1,000 ML 80 ML IVCONT (12:07)
[2020-05-28 12:39] LABS: C Reactive Protein 1.01 mg/dL (< or = 0.50); Lactate Dehydrogenase 219 U/L (122-220)
[2020-05-28] MEDS: levoFLOXacin/D5W 500 MG/100 ML PIGGYBACK 100 MG IV (13:30)
[2020-05-28 14:45] VITALS: BP 134/81; PULSE 82; RESP 19; TEMP 36.8; O2SAT 97
[2020-05-28 16:04] LABS: OBS Int Ctl Valid YES; OBS1 NEG (NEG)
[2020-05-28] MEDS: 0.9 % Sodium Chloride Flush 3 ML SYRINGE IVFLUSH ×2 (16:13→20:09)
--- NOTE | 2020-05-28 16:21 | MHC.CM.PN ---
Addendum entered by Amairani Stewart 05/28/20 16:23: pt has a in home nanny that comes in 1x/month to help with heavy cleaning Original Note: pt reports she lives alone and is independent with all care and mobility. Pt has no services and no DME. Pt reports she has a HCP naming her son, Galen as the agent. Pts current DC plan is home with no services pts son will provide transportation
[2020-05-28 18:50] VITALS: BP 145/78; PULSE 68; RESP 19; TEMP 36.4; O2SAT 97
[2020-05-29] VITALS: BP 150/77; PULSE 84; RESP 14; TEMP 36.3; O2SAT 96
[2020-05-29 02:57] VITALS: BP 133/75; PULSE 93; RESP 14; TEMP 36.4; O2SAT 97
[2020-05-29] MEDS: metroNIDAZOLE/NS 500 MG/100 ML PIGGYBACK 100 MG IV (04:07)
[2020-05-29 06:11] LABS: MANUAL DIFF FLAG NO
[2020-05-29 06:22] LABS: Basophils Absolute Auto 0.1 X10*3/uL (0.0-0.2); Basophils Percent Auto 1.1 % (0-2); Eosinophils Absolute Auto 0.2 X10*3/uL (0.0-0.4); Eosinophils Percent Auto 3.8 % (0-4); Hematocrit 38.5 % (37-47); Imm Gran Abs Auto 0.03 X10*3/uL (0.00-0.03); Imm Gran Pct Auto 0.5 % (0.0-0.4); Lymphocytes Absolute Auto 1.2 X10*3/uL (1.2-4.9); Lymphocytes Percent Auto 20.9 % (20-40); Mean Corpuscular HGB Conc 33.8 g/dl (31.0-35.0); Mean Corpuscular Volume 91.9 fL (80-98); Mean Platelet Volume 9.8 fL (9.4-12.3); Monocytes Percent Auto 17.3 % (2-11); Neutrophils Absolute Auto 3.1 X10*3/uL (2.0-8.3); Neutrophils Percent Auto 56.4 % (45-73); Platelet Count 293 X10*3/uL (160-400); Red Blood Count 4.19 X10*6/uL (4.20-5.50); Red Cell Distribution Width 13.2 % (11.0-16.0); White Blood Count 5.6 X10*3/uL (4.8-10.8)
[2020-05-29 06:51] LABS: Anion Gap 14 (12-20); Blood Urea Nitrogen 4 mg/dL (9-16); Calcium 8.5 mg/dL (8.4-10.2); Carbon Dioxide 24 mmol/L (22-29); Chloride 104 mmol/L (96-108); Creatinine Clr Calc Pharmacy 61.4; Estimated Glomerular Filt Rate > 60; Glucose Fasting 89 mg/dL (60-99); Potassium 3.2 mmol/l (3.3-5.1); Sodium 139 mmol/L (135-145)
[2020-05-29 08:00] VITALS: BP 117/72; PULSE 78; RESP 20; TEMP 36.3; O2SAT 95
[2020-05-29] MEDS: Pravastatin Sodium 20 MG TABLET PO (09:37)
[2020-05-29] MEDS: Ezetimibe 10 MG TABLET PO (09:37)
[2020-05-29] MEDS: Multivitamin TABLET 1 TAB PO (09:37)
[2020-05-29] MEDS: 0.9 % Sodium Chloride Flush 3 ML SYRINGE IVFLUSH (09:38)
--- NOTE | 2020-05-29 10:08 | HO.PM.IMPN ---
Subjective Subjective Date of Service: 05/29/20 Interval History: improved Cardiovascular Cardiovascular: Reports no additional cardiovascular complaints Respiratory Respiratory: Reports no additional respiratory complaints Physical Exam Vital Signs: Vital Signs: Last Vital Signs Temp 97.4 F 05/29/20 08:00 Pulse 78 05/29/20 08:00 Resp 20 05/29/20 08:00 BP 117/72 05/29/20 08:00 Pulse Ox 95 05/29/20 08:00 Body Mass Index 19.6 General: AO X 3, no acute distress Resp: CTA bilateral CVS: S1,S2,RRR GI: soft, non tender, non distended Neuro: motor grossly intact Psych: appropriate affect Objective Data Current Medications Generic Name Dose Route Start Last Admin Trade Name Freq PRN Reason Stop Dose Admin Acetaminophen 650 mg 05/26/20 15:24 05/28/20 08:41 Acetaminophen 325 Mg Tablet PO 650 mg Q6H PRN Administration Pain, Mild (Pain Scale 1-3) Docusate Sodium 100 mg 05/26/20 15:24 Docusate Sodium 100 Mg Capsule PO DAILY PRN Constipation Ezetimibe 10 mg 05/27/20 09:00 05/29/20 09:37 Ezetimibe 10 Mg Tablet PO 10 mg DAILY ERICH Administration Levofloxacin 500 mg in 100 mls @ 100 mls/hr 05/27/20 12:00 05/28/20 14:46 Levaquin IV Infused Q24H ERICH Infusion Metronidazole 500 mg in 100 mls @ 100 mls/hr 05/26/20 20:00 05/29/20 05:19 Flagyl IV Infused Q8H ERICH Infusion Morphine Sulfate 2 mg 05/26/20 15:24 05/27/20 21:09 Morphine Sulfate 2 Mg/Ml Cartridge IVPUSH 2 mg Q4H PRN Administration Pain, Severe (Pain Scale 7-10) Multivitamins/Vitamin C 1 tab 05/27/20 09:00 05/29/20 09:37 Multivitamin Tablet PO 1 tab DAILY ERICH Administration Ondansetron HCl 4 mg 05/26/20 15:24 Ondansetron Hcl 4 Mg/2 Ml Vial IVPUSH Q8H PRN Nausea and Vomiting Pharmacy Consult 1 each 05/26/20 11:42 Consult Rx Perform Med Rec MISCELLANE ONCE PRN Consult order Pravastatin Sodium 20 mg 05/27/20 09:00 05/29/20 09:37 Pravastatin Sodium 20 Mg Tablet PO 20 mg DAILY ERICH Administration Sodium Chloride 3 ml 05/26/20 16:00 05/29/20 09:38 0.9 % Sodium Chloride Flush 3 Ml Syringe IVFLUSH 3 ml QSHIFT ERICH Administration Labs CBC & Chem 7: 05/29/20 05:50 05/29/20 05:50 Microbiology Microbiology Results: Microbiology 05/27/20 07:53 Stool Stool Culture - Preliminary Normal so far. 05/26/20 09:38 Blood - Venous Blood Culture - Preliminary No growth after 48 hours. 05/26/20 09:30 Blood - Venous Blood Culture - Preliminary No growth after 48 hours. Assessment and Plan (1) Colitis: Problem details: Patient seems to have an acute illness that maybe consistent with an infectious vs inflamatory vs ischemic process. Status: Acute (2) Abdominal pain: Problem details: She seems to have lower abdominal ? crampy discomfort. Intensity still seems significant. She may very well need a colonoscopy to be done Friday if none of the testing reveals an etiology. Status: Acute Assessment and Plan: 80F presented with mucusy and blood stools left sided Colitis Infectious versus inflammatory versus ischemic cdif negative, wbc negative, culture no growth to date continue levaquin and flagyl, continue to have diarrhea ?colonscopy, gi to follow up HLD statin, zetia
--- NOTE | 2020-05-29 10:31 | MHC.CM.PN ---
nurse home care scheduler note electronic medical record reviewed patient per documentation was admitted with colitis (inflammatory or infectious), persists with crampy like abdominal pain and diarrhea. she conitnues with iv zofran, iv morphine sulfate both prn, iv levoflacin and iv iv flagyl, id and gi fllowing . discharge plan home no services , ( came from home and independent)
--- NOTE | 2020-05-29 12:15 | PM.DS ---
DS: Providers Provider Date of admission: 05/26/20 11:38 Primary care physician: Ashwin Phoenix MD Consults: 05/26/20 11:38 Consult to Gastroenterology Routine Consulting Provider: Twyla Smith Reason for consultation: colitis Has provider been notified: No DS: Diagnosis Discharge Diagnosis (1) Colitis: Status: Acute Problem details: Patient seems to have an acute illness that maybe consistent with an infectious vs inflamatory vs ischemic process. (2) Abdominal pain: Status: Acute Problem details: She seems to have lower abdominal ? crampy discomfort. Intensity still seems significant. She may very well need a colonoscopy to be done Friday if none of the testing reveals an etiology. DS: Medications Discharge Medications Home Medications: Home Medications Medication Instructions Recorded Confirmed aspirin 81 mg PO DAILY 05/26/20 05/26/20 ezetimibe 10 mg PO DAILY 05/26/20 05/26/20 multivitamin 1 tab PO DAILY 05/26/20 05/26/20 pravastatin 20 mg PO DAILY 05/26/20 05/26/20 Previous Rx's Medication Instructions Recorded levofloxacin 500 mg PO DAILY #7 tab 05/29/20 metronidazole [Flagyl] 500 mg PO BID #14 tab 05/29/20 DS: Summary Hospital Course Hospital Course: Patient was admitted for colitis. She was given Levaquin and Flagyl. Her C diff, stool cultures were negative. Her symptoms resolved over the next couple days. She will continue 7 more days of p.o. Levaquin and Flagyl and follow up with Gastroenterology for possible colonoscopy. Time Spent with Patient Time attestation: Total time spent providing and/or coordinating discharge services: Physical Exam Vital Signs: Vital Signs: Last Vital Signs Temp 97.4 F 05/29/20 08:00 Pulse 78 05/29/20 08:00 Resp 20 05/29/20 08:00 BP 117/72 05/29/20 08:00 Pulse Ox 95 05/29/20 08:00 Body Mass Index 19.6 General: AO X 3, no acute distress Resp: CTA bilateral CVS: S1,S2,RRR GI: soft, non tender, non distended Neuro: motor grossly intact Psych: appropriate affect DS: Data Data Completed and Pending Labs on day of discharge: 05/26/20 07:50 CT abdomen pelvis w con Stat Morphine Sulfate 2 mg IVPUSH ONCE ONE ondansetron HCL [Zofran] 4 mg IVPUSH ONCE ONE 05/26/20 08:00 0.9 % Sodium Chloride [Ns] 500 ml IV 500 mls/hr 05/26/20 08:17 C Reactive Protein Stat Lactate Dehydrogenase Stat Lactic Acid Stat Lipase Stat Liver Panel Stat Magnesium Stat Partial Thromboplastin Time Stat Prothrombin Time INR Stat 05/26/20 08:18 Basic Metabolic Panel Stat Complete Blood Count Auto Diff Stat 05/26/20 08:19 COVID-19 ID NOW (Rojas) Stat 05/26/20 09:53 iohexoL 350 MG/ML [Omnipaque 350 MG/ML] 100 ml IV ONCE ONE 05/26/20 10:23 UA CC w/rflx Micro + Cult Stat 05/26/20 10:47 levoFLOXacin/D5W [Levaquin] 250 mg in 50 ml IV ONCE metroNIDAZOLE/NS [Flagyl] 500 mg in 100 ml IV ONCE 05/26/20 10:53 OBSX1 Stat 05/26/20 11:29 Transfer Order Routine 05/26/20 13:12 Add Laboratory Test Urgent 05/26/20 15:24 Lactated Ringers [Lr] 1,000 ml IVCONT 80 mls/hr 05/26/20 20:15 CDiff with Reflex to PCR Stat Leukocytes Stool Qualitative Stat 05/27/20 06:50 Basic Metabolic Panel DAILY@0600 Complete Blood Count Auto Diff DAILY@0600 05/28/20 07:11 BMP [Basic Metabolic Panel Fasting] Routine C Reactive Protein Routine Complete Blood Count Auto Diff Routine Lactate Dehydrogenase Routine 05/28/20 12:19 Acetaminophen [Tylenol] 650 mg PO ONCE ONE 05/28/20 12:24 Add Laboratory Test Urgent 05/28/20 15:32 OBSX1 Urgent 05/29/20 05:50 BMP [Basic Metabolic Panel Fasting] Routine Complete Blood Count Auto Diff Routine Laboratory Last Values WBC 5.6 X10*3/uL (4.8-10.8) 05/29/20 05:50 RBC 4.19 X10*6/uL (4.20-5.50) L 05/29/20 05:50 Hgb 13.0 g/dl (12.0-16.0) 05/29/20 05:50 Hct 38.5 % (37-47) 05/29/20 05:50 MCV 91.9 fL (80-98) 05/29/20 05:50 MCH 31.0 pg (27.0-33.0) 05/29/20 05:50 MCHC 33.8 g/dl (31.0-35.0) 05/29/20 05:50 RDW 13.2 % (11.0-16.0) 05/29/20 05:50 Plt Count 293 X10*3/uL (160-400) 05/29/20 05:50 MPV 9.8 fL (9.4-12.3) 05/29/20 05:50 Immature Gran % (Auto) 0.5 % (0.0-0.4) H 05/29/20 05:50 Neut % (Auto) 56.4 % (45-73) 05/29/20 05:50 Lymph % (Auto) 20.9 % (20-40) 05/29/20 05:50 [place] % (Auto) 17.3 % (2-11) H 05/29/20 05:50 Eos % (Auto) 3.8 % (0-4) 05/29/20 05:50 Baso % (Auto) 1.1 % (0-2) 05/29/20 05:50 Lymph # (Auto) 1.2 X10*3/uL (1.2-4.9) 05/29/20 05:50 [place] # (Auto) 1.0 X10*3/uL (0.1-1.2) 05/29/20 05:50 Eos # (Auto) 0.2 X10*3/uL (0.0-0.4) 05/29/20 05:50 Baso # (Auto) 0.1 X10*3/uL (0.0-0.2) 05/29/20 05:50 Abs Immat Gran (auto) 0.03 X10*3/uL (0.00-0.03) 05/29/20 05:50 Absolute Neuts (auto) 3.1 X10*3/uL (2.0-8.3) 05/29/20 05:50 Absolute Nucleated RBC 0.000 X10*3/uL (0.0-0.012) 05/29/20 05:50 Nucleated RBC % (auto) 0.0 /100WBC (0.0-0.2) 05/29/20 05:50 PT 11.9 SEC (10.8-13.0) 05/26/20 08:17 INR 1.0 (0.9-1.1) 05/26/20 08:17 APTT 37.2 SEC (24.1-38.0) 05/26/20 08:17 Sodium 139 mmol/L (135-145) 05/29/20 05:50 Potassium 3.2 mmol/l (3.3-5.1) L 05/29/20 05:50 Chloride 104 mmol/L (96-108) 05/29/20 05:50 Carbon Dioxide 24 mmol/L (22-29) 05/29/20 05:50 Anion Gap 14 (-20) 05/29/20 05:50 BUN 4 mg/dL (9-16) L 05/29/20 05:50 Creatinine 0.59 mg/dL (0.5-1.4) 05/29/20 05:50 Estim Creat Clear Calc 61.4 05/29/20 05:50 Estimated GFR > 60 05/29/20 05:50 Random Glucose 89 mg/dL (60-115) 05/27/20 06:50 Fasting Glucose 89 mg/dL (60-99) 05/29/20 05:50 Lactic Acid 0.8 mmol/L (0.5-2.0) 05/26/20 08:17 Calcium 8.5 mg/dL (8.4-10.2) 05/29/20 05:50 Magnesium 2.1 mg/dL (1.6-2.6) 05/26/20 08:17 Total Bilirubin 0.5 mg/dL (0.0-1.0) 05/26/20 08:17 Direct Bilirubin 0.3 mg/dL (0.0-0.5) 05/26/20 08:17 AST 18 U/L (5-31) 05/26/20 08:17 ALT 14 U/L (0-31) 05/26/20 08:17 Alkaline Phosphatase 59 U/L (39-117) 05/26/20 08:17 Lactate Dehydrogenase 219 U/L (122-220) 05/28/20 07:11 C-Reactive Protein 1.01 mg/dL (< or = 0.50) H 05/28/20 07:11 Total Protein 6.5 g/dL (6.5-8.0) 05/26/20 08:17 Albumin 4.0 g/dL (3.5-5.0) 05/26/20 08:17 Lipase 33 U/L (8-78) 05/26/20 08:17 Urine Color YELLOW 05/26/20 10:23 Urine Appearance CLEAR 05/26/20 10:23 Urine pH 5.5 (5.0-8.0) 05/26/20 10:23 Ur Specific [place] <= 1.005 (1.005-1.025) 05/26/20 10:23 Urine Protein NEG MG/DL (NEG-TRACE) 05/26/20 10:23 Urine Glucose (UA) NEG MG/DL (NEG) 05/26/20 10:23 Urine Ketones 15 MG/DL (NEG) 05/26/20 10:23 Urine Blood NEG (NEG) 05/26/20 10:23 Urine Nitrite NEG (NEG) 05/26/20 10:23 Ur Leukocyte Esterase NEG (NEG) 05/26/20 10:23 Stool Collect Date Cancelled 05/28/20 15:32 Stool Occult Blood Cancelled 05/28/20 15:32 Stool Occult Blood NEG (NEG) 05/28/20 15:32 Stool 2 Collect Date Cancelled 05/28/20 15:32 Stool Occult Blood #2 Cancelled 05/28/20 15:32 Stool 3 Collect Date Cancelled 05/28/20 15:32 Stool Occult Blood #3 Cancelled 05/28/20 15:32 Stool Leukocytes, Qual NEGATIVE (NEGATIVE) 05/26/20 20:15 C. difficile Toxin A&B Negative (Negative) 05/26/20 20:15 C. difficile Antigen Negative (Negative) 05/26/20 20:15 C. difficile Interpret SEE NOTE 05/26/20 20:15 COVID-19 (SHANIQUA) Negative (Negative) 05/26/20 08:19 COVID-19 Clin Com See Note 05/26/20 08:19 Preliminary micro results at discharge 05/27/20 07:53 Stool Culture - Preliminary Stool Normal so far. 05/26/20 09:38 Blood Culture - Preliminary Blood - Venous No growth after 48 hours. 05/26/20 09:30 Blood Culture - Preliminary Blood - Venous No growth after 48 hours. Discharge Plan Discharge Patient Disposition: Home, Self-Care Referrals: Ashwin Phoenix MD [Primary Care Provider] - Alex Key [Physician] - Discharge Medications: New levofloxacin 500 mg tablet 500 mg PO DAILY Qty: 7 RF: 0 metronidazole [Flagyl] 500 mg tablet 500 mg PO BID Qty: 14 RF: 0 Continued multivitamin Tablet 1 tab PO DAILY RF: 0 aspirin 81 mg Tablet,Delayed Release (Dr/Ec) 81 mg PO DAILY RF: 0 pravastatin 20 mg tablet 20 mg PO DAILY RF: 0 ezetimibe 10 mg tablet 10 mg PO DAILY RF: 0 Discharge Orders: Discharge Order (Routine); Ordered 05/29/20 Ordered By: Doug Humphreys Activity on Discharge: As tolerated Visit Report Forms: Patient Portal Discharge page Care Plan Goals: recovery Health Concerns: colitis Plan of Treatment: jones bazan, follow up with gi
--- NOTE | 2020-05-29 13:33 | MHC.CM.PN ---
PT DISCHARGING HOME SELF-CARE, SON TO TRANSPORT PT. PT NEEDS TO FOLLOWUP WITH DR. SOLOMON IN GI WITHIN 1-2 WEEKS PER COVERING
== END 2020-05-29 13:35 | disposition home or self-care (01) | DRG 387 ==
LOC: HO.ED 10:49 → HO.S3 13:34
PROVIDERS: Internal Medicine Gastroenterology; Physician Assistant Medical; Admitting Provider Internal Medicine; Emergency Provider Emergency Medicine; PCP Internal Medicine; Visit Provider Internal Medicine
DX: K51.50 Left sided colitis without complications (principal); E78.5 Hyperlipidemia, unspecified; Z95.2 Presence of prosthetic heart valve; Z20.828 Contact with and (suspected) exposure to other viral communicable diseases; Z79.82 Long term (current) use of aspirin; Z79.899 Other long term (current) drug therapy
CPT/HCPCS: 36415; 74177; 80048; 80076; 81003; 82270; 82272; 83605; 83615; 83690; 83735; 85025; 85610; 85730; 86140; 87040; 87045; 87046; 87324; 87449; 87635; 89055; 96361; 96365; 96375; 99284; 99285; J1956; J2270; J2405; Q9967

== ENCOUNTER 2022-11-12 10:21 | Emergency (ER) | payer MEDICARE, SELFPAY ==
--- NOTE | ~2022-11-12 | CT_ITS ---
EXAMINATION: Head and cervical spine CT without IV contrast CLINICAL INFORMATION: Trauma. Fall. COMPARISON: None. TECHNIQUE: Axial images through the head and cervical spine without IV contrast. Sagittal and coronal reconstructions on the technologist workstation were performed. This CT examination was performed using dose optimization techniques as appropriate, variously including the following: *Automated exposure control *Adjustment of mA and/or kV according to patient size (this includes techniques or standardized protocols for targeted exams where dose is matched to indication/reason for exam; i.e. extremities or head) *Use of iterative reconstruction technique DLP 8 7 4 mg/cm FINDINGS: Head CT: There is no evidence of an extra-axial collection. There is no evidence of intra-axial or extra-axial hemorrhage. There is a 1 cm dense ossification or calcification in the left frontal lobe. There is surrounding vasogenic edema. There is adjacent dural thickening and likely represents a meningioma arising from the base of the left frontal lobe. No other mass or mass effect is seen. No infarct. The ventricles and extra-axial CSF spaces are slightly prominent suggestive of mild generalized atrophy. There is nonspecific periventricular white matter disease. There is a probable left choroid fissure cyst. No skull fracture. Visualized paranasal sinuses, mastoid air cells and middle ears are clear. Cervical spine CT: There is curvature of the cervical spine to the right. Bone alignment is otherwise normal. There is multilevel degenerative spondylosis and degenerative disc disease from C3-C4 to T2-T3. There is bilateral multilevel facet arthritis. There are degenerative changes of the C1 dens articulation and increased soft tissue suggestive of pannus. Prevertebral soft tissues are normal. There is left carotid calcification. There is right apical pleural and parenchymal scarring. CT/CT cervical spine wo IV con IMPRESSION: Head CT: No acute findings. Probable 1 cm left frontal meningioma. Cervical spine CT: No fracture or dislocation. Degenerative changes.
--- NOTE | ~2022-11-12 | XR_ITS ---
EXAMINATION: XR CHEST CLINICAL INFORMATION: Fall. Syncope. COMPARISON: None available. TECHNIQUE: 2 views of the chest were obtained. FINDINGS: The cardiac silhouette does not appear enlarged. There is an aortic valve replacement. Hilar and mediastinal contours are unremarkable. The lungs are clear. No pleural effusion or pneumothorax. Median sternotomy wires. Degenerative changes of the thoracic spine and curvature of the upper lumbar spine to the left. XR/XR chest 2V IMPRESSION: No evidence for acute disease in the chest.
[2022-11-12 10:41] VITALS: BP 137/81; PULSE 93; RESP 20; TEMP 36.4; O2SAT 96; BMI 18.8
--- NOTE | 2022-11-12 10:56 | ED.GENADULT ---
HPI - General Adult General Chief complaint: Fall Stated complaint: fall, per ems Time Seen by Provider: 11/12/22 10:56 Source: patient, family (patient's son) and EMS Mode of arrival: EMS Limitations: no limitations History of Present Illness HPI narrative: Patient is an 82 year old assigned female at with a history of colitis presenting to the emergency department today after a fall. Patient states that last night around 5pm she tripped over her rug and fell in her bathroom. Patient states that she does not believe that she list consciousness. Patient denies any dizziness, lightheadedness, abdominal pain, nausea, vomiting, fever, chills, blurry vision, double vision, loss of vision, chest pain, difficulty breathing, shortness of breath, back pain, night sweats, pain with urination, increased urinary frequency, increased urinary urgency, blood in her urine or stool, syncope or a near syncopal episode, bowel incontinence, bladder incontinence, bowel retention, bladder retention, or any other complaints at this time. Onset (ago): hour(s) Relieving factors: none Exacerbating factors: none Associated symptoms: denies other symptoms Treatments prior to arrival: none Related Data Home Medications Medication Instructions Recorded Confirmed aspirin 81 mg tablet,delayed 81 mg PO DAILY 05/26/20 05/26/20 release ezetimibe 10 mg tablet 10 mg PO DAILY 05/26/20 05/26/20 multivitamin 1 tab PO DAILY 05/26/20 05/26/20 pravastatin 20 mg tablet 20 mg PO DAILY 05/26/20 05/26/20 Previous Rx's Medication Instructions Recorded levofloxacin 500 mg tablet 500 mg PO DAILY #7 tabs 05/29/20 metronidazole 500 mg tablet 500 mg PO BID #14 tabs 05/29/20 (Flagyl) Allergies Allergy/AdvReac Type Severity Reaction Status Date / Time No Known Allergies Allergy Verified 05/26/20 07:50 Review of Systems Constitutional: Constitutional: Reports no additional constitutional complaints, Denies chills, Denies fever(s) and Denies night sweats Eyes: Eyes: Reports no additional eye complaints, Denies blurry vision, Denies change in vision, Denies diplopia, Denies eye discharge, Denies loss of vision and Denies eye pain ENT: Denies dizziness Cardiovascular: Cardiovascular: Reports no additional cardiovascular complaints, Denies chest pain, Denies lightheadedness, Denies Loss of Consciousness and Denies dyspnea Respiratory: Respiratory: Reports no additional respiratory complaints and Denies dyspnea Gastrointestinal: Gastrointestinal: Reports no additional gastrointestinal complaints, Denies abdominal pain, Denies melena, Denies hematochezia, Denies change in bowel habits and Denies change in stool character Genitourinary: Genitourinary: Denies hematuria, Denies urinary frequency, Denies dysuria, Denies urinary incontinence, Denies urinary hesitancy and Denies urinary urgency Musculoskeletal: Musculoskeletal: Reports no additional musculoskeletal complaints, Denies numbness and Denies tingling Neurologic: Denies dizziness, Denies loss of vision, Denies numbness and Denies tingling Psychiatric: Psychiatric: Reports no additional psychiatric complaints Endocrine: Endocrine: Reports no additional endocrine complaints Hematologic/Lymphatic: Hematologic/Lymphatic: Reports no additional hematologic/lymphatic complaints Allergic/Immunologic: Allergic/Immunologic: Reports no additional allergic/immunologic complaints PMFSH Past Medical History Attestation statement: The following information was validated with the patient. (all information was validated with the patient's son) Source: old records reviewed, obtained from family (patient's son) and nursing notes reviewed Medical History High cholesterol Hx of aortic valve stenosis Surgical History H/O aortic valve repair H/O: hysterectomy Hx of colonoscopy Family History Family History Mother Glioblastoma Social History Social History Household Members: None Housing: House Do you presently have visiting nurse or other home services: No Alcohol intake: current Alcohol intake frequency: does not drink Smoked in Last 30 Days: No Use of substances other than those prescribed or required for medical reasons: No Advance Directives: Yes Advance Directives Information Provided: Yes Advance Directives on File: No service: No Current occupational status: retired Physical Exam ED Vital Signs: Vital Signs - 24 hr 11/12/22 10:41 11/12/22 11:44 Temperature 97.6 F Pulse Rate 93 98 Respiratory Rate 20 20 Blood Pressure 137/81 145/79 H Pulse Oximetry 96 98 Oxygen Delivery Method Room Air Room Air BMI result Body Mass Index 18.8 Const General: cooperative, no acute distress, alert and awake Nutritional Appearance: well nourished Orientation/consciousness: patient oriented x3 Limitations: no limitations HENMT Head: Yes normal to inspection and Yes atraumatic Ears: hearing grossly normal bilaterally and external ears normal General nose exam: Normal external nose present, no nasal discharge noted and no epistaxis Face and sinus: Yes normal facial exam, No abrasion and No laceration Mouth: Normal oral and palatal mucosa present, no drooling and no muffled voice Eyes General: appearance normal, both eyes and all related structures Periorbital: periorbital findings normal Eyelids: Yes eyelids normal Conjunctivae: conjunctivae normal Pupils: Equal, round and reactive pupils present EOM: EOMs intact bilaterally Neck Neck: Yes normal visual inspection, Yes full ROM and Yes no lymphadenopathy Chest Chest palpation & inspection: normal inspection of the chest Resp Effort & Inspection: normal respiratory effort and able to speak in complete sentences Auscultation: clear to auscultation bilaterally Cardio Rate: regular rate Rhythm: regular rhythm GI Inspection: Yes normal to inspection Palpation (GI): Soft to palpation, not firm, nontender, no guarding and not rigid General: Yes no CVA tenderness Back/Spine/Pelvis Back: no CVA tenderness Cervical Spine: normal cervical lordosis and cervical ROM normal Thoracic/Lumbar Spine: thoracic and lumbar spine normal to inspection and thoraco-lumbar ROM normal Pelvis: no pain with anterior-posterior compression Neuro General: patient oriented x3 and moves all extremities Cranial nerves: Yes Equal, round and reactive pupils present Cognition (Neuro): normal cognition Motor exam (neuro): 5/5 motor strength present throughout Sensory Exam: Normal double simultaneous stimulation for sensation Coordination: [id number] test normal Extrem General: Yes normal to inspection, Yes full ROM and Yes capillary refill normal Psych Appearance: grossly normal Mental Status: mental status grossly normal Affect: normal affect Attitude: cooperative Thought process: Normal thought process present Thought content: Normal thought content present Insight: Good insight present (Psych) Medications Administered Discontinued Medications Generic Name Dose Route Start Last Admin Trade Name Freq PRN Reason Stop Dose Admin Morphine Sulfate 4 mg 11/12/22 11:03 11/12/22 11:39 Morphine Sulfate 4 Mg/Ml Cartridge IVPUSH 11/12/22 11:04 4 mg ONCE ONE Administration Protocol Ondansetron HCl 4 mg 11/12/22 11:03 11/12/22 11:39 Ondansetron Hcl 4 Mg/2 Ml Vial IVPUSH 11/12/22 11:04 4 mg ONCE ONE Administration Medical Decision Making Medical Decision Making [facility] Narrative: Patient is an 82 year old assigned female at with a history of colitis presenting to the emergency department today after an unwitnessed fall. Patient's physical exam was unremarkable. Patient's blood work was unremarkable. Patient's EKG was unremarkable. Patient's chest x-ray, head CT, and C-Spine CT showed no acute process. I explained my physical exam findings as well as all test results to the patient and the patient's son. I answered all questions asked by the patient and the patient's son. I stressed the importance of the patient taking her medication as prescribed. I stressed the importance of the patient following up with her primary care provider. Patient's son stated that he would be staying with the patient and she was safe to go home. I stressed the importance of the patient returning to the emergency department immediately if her symptoms were to worsen or if she were to develop any dizziness, shortness of breath, difficulty breathing, chest pain, blurry vision, loss of vision, nausea, vomiting, abdominal pain, fever, chills, back pain, or any other complaints. Patient and the patient's son verbalized agreement and understanding with this treatment plan and discharge. Differential Diagnosis Differential Diagnoses: The differential diagnosis associated with the presentation includes fall Admission/Observation Consideration of admission/observation: Escalation of care including admission/observation considered Patient would have been admitted had her work up showed a process appropriate for admission. Lab Data [facility] Lab Attestation statement: I reviewed the patient's lab results. 11/12/22 11:28 11/12/22 11:28 Labs: Lab Results 11/12/22 11/12/22 11/12/22 Range/Units 11:28 11:28 11:28 WBC 8.8 (4.8-10.8) X10*3/uL RBC 4.65 (4.20-5.50) X10*6/uL Hgb 14.9 (12.0-16.0) g/dl Hct 40.9 (37.0-47.0) % MCV 88.0 (80.0-98.0) fL MCH 32.0 (27.0-33.0) pg MCHC 36.4 H (31.0-35.0) g/dl RDW 13.6 (11.0-16.0) % Plt Count 250 (160-400) X10*3/uL MPV 10.4 (9.4-12.3) fL Immature Gran % (Auto) 0.9 H (0.0-0.4) % Neut % (Auto) 69.7 (45-73) % Lymph % (Auto) 16.9 L (20-40) % Bracken % (Auto) 12.2 H (2-11) % Eos % (Auto) 0.0 (0-4) % Baso % (Auto) 0.3 (0-2) % Lymph # (Auto) 1.5 (1.2-4.9) X10*3/uL [place]acken # (Auto) 1.1 (0.1-1.2) X10*3/uL Eos # (Auto) 0.0 (0.0-0.4) X10*3/uL Baso # (Auto) 0.0 (0.0-0.2) X10*3/uL Abs Immat Gran (auto) 0.08 H (0.00-0.03) X10*3/uL Absolute Neuts (auto) 6.1 (2.0-8.3) x10*3/uL Absolute Nucleated RBC 0.000 (0.0-0.012) X10*3/uL Nucleated RBC % (auto) 0.0 (0.0-0.2) /100WBC Sodium 139 (135-145) mmol/L Potassium 3.4 (3.3-5.1) mmol/L Chloride 105 (96-108) mmol/L Carbon Dioxide 19 L (22-29) mmol/L Anion Gap 18 (12-20) BUN 13 (9-16) mg/dL Creatinine 0.73 (0.5-1.4) mg/dL Estim Creat Clear Calc 50.2 Estimated GFR > 60 Random Glucose 117 H (60-115) mg/dL Calcium 10.7 H D (8.4-10.2) mg/dL Magnesium 1.9 (1.6-2.6) mg/dL Total Bilirubin 1.6 H (0.0-1.0) mg/dL AST 21 (5-31) U/L ALT 15 (0-31) U/L Alkaline Phosphatase 43 (39-117) U/L Total Creatine Kinase 125 (26-140) U/L Troponin I High Sens (<3.5-17.0) ng/L Total Protein 6.9 (6.5-8.0) g/dL Albumin 4.4 (3.5-5.0) g/dL COVID-19 (SHANIQUA) Negative (Negative) COVID-19 Clin Com See Note 11/12/22 Range/Units 11:28 WBC (4.8-10.8) X10*3/uL RBC (4.20-5.50) X10*6/uL Hgb (12.0-16.0) g/dl Hct (37.0-47.0) % MCV (80.0-98.0) fL MCH (27.0-33.0) pg MCHC (31.0-35.0) g/dl RDW (11.0-16.0) % Plt Count (160-400) X10*3/uL MPV (9.4-12.3) fL Immature Gran % (Auto) (0.0-0.4) % Neut % (Auto) (45-73) % Lymph % (Auto) (20-40) % Bracken % (Auto) (2-11) % Eos % (Auto) (0-4) % Baso % (Auto) (0-2) % Lymph # (Auto) (1.2-4.9) X10*3/uL Bracken # (Auto) (0.1-1.2) X10*3/uL Eos # (Auto) (0.0-0.4) X10*3/uL Baso # (Auto) (0.0-0.2) X10*3/uL Abs Immat Gran (auto) (0.00-0.03) X10*3/uL Absolute Neuts (auto) (2.0-8.3) x10*3/uL Absolute Nucleated RBC (0.0-0.012) X10*3/uL Nucleated RBC % (auto) (0.0-0.2) /100WBC Sodium (135-145) mmol/L Potassium (3.3-5.1) mmol/L Chloride (96-108) mmol/L Carbon Dioxide (22-29) mmol/L Anion Gap (12-20) BUN (9-16) mg/dL Creatinine (0.5-1.4) mg/dL Estim Creat Clear Calc Estimated GFR Random Glucose (60-115) mg/dL Calcium (8.4-10.2) mg/dL Magnesium (1.6-2.6) mg/dL Total Bilirubin (0.0-1.0) mg/dL AST (5-31) U/L ALT (0-31) U/L Alkaline Phosphatase (39-117) U/L Total Creatine Kinase (26-140) U/L Troponin I High Sens < 2.7 (<3.5-17.0) ng/L Total Protein (6.5-8.0) g/dL Albumin (3.5-5.0) g/dL COVID-19 (SHANIQUA) (Negative) COVID-19 Clin Com Independent Interpretation I performed an independent interpretation of an: EKG Interpretation: Vent. Rate: 090 BPM ? ? Atrial Rate: 090 BPM P-R Int: 144 ms? QRS Dur: 090 ms QT Int: 378 ms ? ? ? P-R-T Axes: 060 -29 126 degrees QTc Int: 462 ms ? Normal sinus rhythm Possible Left atrial enlargement Left ventricular hypertrophy with repolarization abnormality ([place] product) Cannot rule out Septal infarct , age undetermined Abnormal ECG When compared with ECG of 16-MAY-2004 08:13, Minimal criteria for Septal infarct are now Present DD/ 1132 My interpretation is in agreement with the radiologist's impression of this imaging study. EXAMINATION: XR CHEST CLINICAL INFORMATION: Fall. Syncope. COMPARISON: None available. TECHNIQUE: 2 views of the chest were obtained. FINDINGS: The cardiac silhouette does not appear enlarged. There is an aortic valve replacement. Hilar and mediastinal contours are unremarkable. The lungs are clear. No pleural effusion or pneumothorax. Median sternotomy wires. Degenerative changes of the thoracic spine and curvature of the upper lumbar spine to the left. XR/XR chest 2V IMPRESSION: No evidence for acute disease in the chest. Dictated By: Damaris Chavez MD Signed By: Electronically signed by Damaris Chavez MD 11/12/22 1508 EXAMINATION: Head and cervical spine CT without IV contrast CLINICAL INFORMATION: Trauma. Fall.? COMPARISON: None.? TECHNIQUE: Axial images through the head and cervical spine without IV contrast. Sagittal and coronal reconstructions on the technologist workstation were performed. This CT examination was performed using dose optimization techniques as appropriate, variously including the following: *Automated exposure control *Adjustment of mA and/or kV according to patient size (this includes techniques or standardized protocols for targeted exams where dose is matched to indication/reason for exam; i.e. extremities or head) *Use of iterative reconstruction technique DLP 8 7 4 mg/cm FINDINGS: Head CT: There is no evidence of an extra-axial collection. There is no evidence of intra-axial or extra-axial hemorrhage. There is a 1 cm dense ossification or calcification in the left frontal lobe. There is surrounding vasogenic edema. There is adjacent dural thickening and likely represents a meningioma arising from the base of the left frontal lobe. No other mass or mass effect is seen. No infarct. The ventricles and extra-axial CSF spaces are slightly prominent suggestive of mild generalized atrophy. There is nonspecific periventricular white matter disease. There is a probable left choroid fissure cyst. No skull fracture. Visualized paranasal sinuses, mastoid air cells and middle ears are clear. Cervical spine CT: There is curvature of the cervical spine to the right. Bone alignment is otherwise normal. There is multilevel degenerative spondylosis and degenerative disc disease from C3-C4 to T2-T3. There is bilateral multilevel facet arthritis. There are degenerative changes of the C1 dens articulation and increased soft tissue suggestive of pannus. Prevertebral soft tissues are normal. There is left carotid calcification. There is right apical pleural and parenchymal scarring. CT/CT head/brain wo IV con IMPRESSION: Head CT: No acute findings. Probable 1 cm left frontal meningioma. ? Cervical spine CT: No fracture or dislocation. Degenerative changes. Dictated By: Damaris Chavez MD Signed By: Electronically signed by Damrais Chavez MD 11/12/22 [id number] Independent Historian Clinical information obtained from an independent historian. History obtained from or confirmed by: EMS and Other (patient's son) Critical Care Time Critical Care Time Critical Care Time: Yes Total Critical Care Time: 30 Attestation: I spent 30 minutes of Critical Care Time with this patient. This does not include time spent on separately reported billable procedures. Discharge Plan Discharge Clinical Impression: Fall Patient Disposition: Home, Self-Care Instructions: Fall Prevention for Older Adults (ED) Additional Instructions: Follow up with your primary care provider. Return to the emergency department immediately if your symptoms worsen or if you develop any dizziness, shortness of breath, difficulty breathing, chest pain, blurry vision, loss of vision, nausea, vomiting, abdominal pain, fever, chills, back pain, or any other complaints. Prescriptions: No Action multivitamin Tablet 1 tab PO DAILY aspirin 81 mg Tablet,Delayed Release (Dr/Ec) 81 mg PO DAILY pravastatin 20 mg tablet 20 mg PO DAILY ezetimibe 10 mg tablet 10 mg PO DAILY levofloxacin 500 mg tablet 500 mg PO DAILY Qty: 7 0RF metronidazole [Flagyl] 500 mg tablet 500 mg PO BID Qty: 14 0RF Referrals: [facility] [place] [facility] [Provider Group] (Call to establish and follow up with a primary care provider. If you already have a primary care provider, please follow up with them.) [facility] [place] [facility] [Provider Group] (Call to establish and follow up with a primary care provider. If you already have a primary care provider, please follow up with them.) [facility] [place] [facility] [Provider Group] (Call to establish and follow up with a primary care provider. If you already have a primary care provider, please follow up with them.) Print Language: Romanian
--- NOTE | 2022-11-12 11:02 | ECG_ITS ---
Test Reason : FALL Blood Pressure : / mmHG Vent. Rate : 090 BPM Atrial Rate : 090 BPM P-R Int : 144 ms QRS Dur : 090 ms QT Int : 378 ms P-R-T Axes : 060 -29 126 degrees QTc Int : 462 ms Normal sinus rhythm Possible Left atrial enlargement Left ventricular hypertrophy with repolarization abnormality ( [place] product ) Cannot rule out Septal infarct , age undetermined Abnormal ECG When compared with ECG of 16-MAY-2004 08:13, Minimal criteria for Septal infarct are now Present Referred By: Ronna Lema Electronically Signed By:HAYES CRESPO MD
[2022-11-12 11:35] LABS: MANUAL DIFF FLAG NO
[2022-11-12] MEDS: Morphine Sulfate 4 MG/ML CARTRIDGE IVPUSH (11:39)
[2022-11-12] MEDS: ondansetron HCL 4 MG/2 ML VIAL IVPUSH (11:39)
[2022-11-12 11:42] LABS: Basophils Percent Auto 0.3 % (0-2); Hematocrit 40.9 % (37.0-47.0); Hemoglobin 14.9 g/dl (12.0-16.0); Imm Gran Abs Auto 0.08 X10*3/uL (0.00-0.03); Imm Gran Pct Auto 0.9 % (0.0-0.4); Lymphocytes Absolute Auto 1.5 X10*3/uL (1.2-4.9); Lymphocytes Percent Auto 16.9 % (20-40); Mean Corpuscular HGB Conc 36.4 g/dl (31.0-35.0); Mean Platelet Volume 10.4 fL (9.4-12.3); Monocytes Absolute Auto 1.1 X10*3/uL (0.1-1.2); Monocytes Percent Auto 12.2 % (2-11); Neutrophils Absolute Auto 6.1 x10*3/uL (2.0-8.3); Neutrophils Percent Auto 69.7 % (45-73); Platelet Count 250 X10*3/uL (160-400); Red Blood Count 4.65 X10*6/uL (4.20-5.50); Red Cell Distribution Width 13.6 % (11.0-16.0); White Blood Count 8.8 X10*3/uL (4.8-10.8)
[2022-11-12 11:44] VITALS: BP 145/79; PULSE 98; RESP 20; O2SAT 98
[2022-11-12 11:50] LABS: Alanine Aminotransferase 15 U/L (0-31); Albumin Level 4.4 g/dL (3.5-5.0); Alkaline Phosphatase 43 U/L (39-117); Anion Gap 18 (12-20); Aspartate Amino Transferase 21 U/L (5-31); Bilirubin Total 1.6 mg/dL (0.0-1.0); Blood Urea Nitrogen 13 mg/dL (9-16); Calcium 10.7 mg/dL (8.4-10.2); Carbon Dioxide 19 mmol/L (22-29); Chloride 105 mmol/L (96-108); Creatinine Clr Calc Pharmacy 50.2; Estimated Glomerular Filt Rate > 60; Glucose Random 117 mg/dL (60-115); Magnesium 1.9 mg/dL (1.6-2.6); Potassium 3.4 mmol/L (3.3-5.1); Sodium 139 mmol/L (135-145); Total Protein 6.9 g/dL (6.5-8.0)
[2022-11-12 11:55] LABS: COVID-19 Test Negative (Negative); IDNOW Serial# 08D9AD1C
[2022-11-12 12:00] LABS: Troponin-I High Sensitivity < 2.7 ng/L (<3.5-17.0)
--- NOTE | 2022-11-12 12:00 | PC.NURSE ---
pt had unwitnessed fall yesterday around 1700. she does not remember how she fell/if she lost consciousness/if she hit her head. pt lives alone and reports that she crawled to her bed and got herself up from the floor. not on thinners. per pt's son she called him with c/o headache. no dizziness/blurry vision. moves all extremities at baseline. 20g iv inserted RAC, labs drawn, meds given as documented. pt's son at her bedside. vss.
--- NOTE | 2022-11-12 14:57 | PC.NURSE ---
complete bed change and incontinent care done. pt's son remains at bedside.
== END 2022-11-12 16:12 | disposition home or self-care (01) ==
PROVIDERS: Physician Assistant Medical; Emergency Provider Emergency Medicine
DX: Z04.3 Encounter for examination and observation following other accident (principal); Z91.81 History of falling; Z20.822 Contact with and (suspected) exposure to COVID-19; E78.5 Hyperlipidemia, unspecified; Z79.02 Long term (current) use of antithrombotics/antiplatelets; Z79.82 Long term (current) use of aspirin; Z79.899 Other long term (current) drug therapy
CPT/HCPCS: 36415; 70450; 71046; 72125; 80053; 82550; 83735; 84484; 85025; 87635; 93005; 96374; 96375; 99284; J2270; J2405

== ENCOUNTER 2024-05-17 08:00 | Emergency (ER) | payer MEDICARE, SELFPAY ==
--- NOTE | ~2024-05-17 | CT_ITS ---
EXAMINATION: CT CERVICAL SPINE WITHOUT CONTRAST; UNENHANCED CT OF THE HEAD. CLINICAL INFORMATION: Fall. Head strike. COMPARISON: CT head and cervical spine 11/12/2022. TECHNIQUE: Routine unenhanced CT of the head with multiple coronal and sagittal reformatted images; routine unenhanced CT of the cervical spine with multiple coronal and sagittal reformatted images. This CT examination was performed using dose optimization techniques as appropriate, variously including the following: *Automated exposure control *Adjustment of mA and/or kV according to patient size (this includes techniques or standardized protocols for targeted exams where dose is matched to indication/reason for exam; i.e. extremities or head) *Use of iterative reconstruction technique DLP: 874 mGy-cm FINDINGS: CT head: No intracranial hemorrhage or acute infarcts noted. Moderate diffuse commensurate prominence of ventricles and sulci is present. The intraparenchymal dense calcification measuring 1.3 cm in maximum diameter is present in left inferior frontal lobe unchanged compared with 11/12/2022. Mild segmental calcific atherosclerosis of the cavernous portions of the internal carotid arteries. Bilateral ocular lens replacements. No extra cranial soft tissue inflammatory changes. No significant opacification of the visualized paranasal sinuses, mastoid air cells and middle ear cavities. CT cervical spine: No fractures or acute appearing subluxations are noted. Bridging endplate osteophytosis and partial interbody bridging noted at C3-C4-C5. Marked intervertebral disc space narrowing and prominent posterior endplate osteophytosis C5-C6. Left-sided facet bridging C3-C4-C5. Moderate multilevel facet hypertrophic changes are present elsewhere within the cervical spine. Bilateral parasagittal ununited fractures of the posterior arch of C1 are present exhibiting variously indistinct and partially well-corticated fracture margins. Similar fractures were present on the comparison study of 11/12/2022. No prevertebral fluid collections or soft tissue inflammatory changes noted. Normal appearance of the thyroid aside from a 3 mm punctate calcification within the right lobe of the thyroid which on the basis of this examination warrants no additional imaging follow-up and is overwhelmingly likely to be benign. The visualized lung apices are clear. Moderate left and mild right carotid bulb calcific atherosclerotic plaques noted. CT/CT cervical spine wo IV con IMPRESSION: CT head: *No acute intracranial abnormalities. *Chronic dystrophic 1.2 cm intraparenchymal calcification within the left inferior frontal lobe unchanged compared with 11/12/2022. *Bilateral moderate diffuse global cerebral parenchymal volume loss. CT cervical spine: *No acute abnormalities identified. 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 These fractures were present on the comparison study of 11/12/2022. *Multilevel chronic spondylosis of the cervical spine. Electronically signed by: Jorge Shen MD 05/17/2024 11:51 AM [facility]
--- NOTE | ~2024-05-17 | XR_ITS ---
EXAMINATION: XR RIBS, RIGHT CLINICAL INFORMATION: tenderness after fall lower ribs COMPARISON: Chest radiograph 11/12/2022. TECHNIQUE: AP chest; 3 view series right ribs FINDINGS: Multiple fractured median sternotomy wires. Aortic valve prosthesis is noted. Normal size of the cardiac silhouette. Moderate aortic calcific atherosclerosis. No effusions or pneumothoraces. Normal pattern of pulmonary vasculature. No focal pulmonary consolidation. Mildly displaced fracture of the posterior lateral segment of the right ninth rib is present. No suspicious right rib lesions identified. The visualized thoracic vertebral bodies demonstrate moderate multilevel endplate osteophytosis. No gross vertebral body compression deformities identified. XR/XR ribs RT min 3V w CXR1V IMPRESSION: *Mildly displaced transverse fracture of the posterior lateral segment of the right ninth rib. *No pleural effusions or pneumothoraces. No acute cardiopulmonary abnormalities. Electronically signed by: Jorge Shen MD 05/17/2024 11:40 AM [facility] [place]
[2024-05-17 08:05] VITALS: BP 154/84; PULSE 73; RESP 16; TEMP 37; O2SAT 97; BMI 17.2
--- NOTE | 2024-05-17 08:43 | ED.GENADULT ---
HPI - General Adult General Chief complaint: Fall Stated complaint: fall Time Seen by Provider: 05/17/24 08:43 Source: patient and family Mode of arrival: ambulatory Limitations: no limitations History of Present Illness ED Provider: [facility] narrative: Patient is an 84-year-old female with history of colitis presenting to the emergency department with complaint of right lower rib pain after a slip and fall yesterday afternoon. Patient reports that she was in the shower when she felt the need to go to the bathroom. As she stepped out of the shower, she slipped on the mat and fell on to her side, hitting the tub. Now complains of right lower rib pain. Unsure of head strike. Denies loss of consciousness. She is not anticoagulated. Reports feeling very weak today. Took ibuprofen around 6am. complaint: rib pain Onset (ago): hour(s) Severity: severe Quality: aching Associated symptoms: weakness Treatments prior to arrival: NSAID Related Data Home Medications ?Medication ?Instructions ?Recorded ?Confirmed aspirin 81 mg tablet,delayed 81 mg PO DAILY 05/26/20 05/26/20 release ezetimibe 10 mg tablet 10 mg PO DAILY 05/26/20 05/26/20 multivitamin 1 tab PO DAILY 05/26/20 05/26/20 pravastatin 20 mg tablet 20 mg PO DAILY 05/26/20 05/26/20 Previous Rx's ?Medication ?Instructions ?Recorded levofloxacin 500 mg tablet 500 mg PO DAILY #7 tabs 05/29/20 metronidazole 500 mg tablet 500 mg PO BID #14 tabs 05/29/20 (Flagyl) Allergies Allergy/AdvReac Type Severity Reaction Status Date / Time No Known Allergies Allergy Verified 05/17/24 08:06 Review of Systems Review of Systems: As per hPI Yes all other systems are reviewed and are negative Constitutional: Constitutional: Reports as per HPI [facility] Past Medical History Medical History High cholesterol Hx of aortic valve stenosis Surgical History H/O aortic valve repair H/O: hysterectomy Hx of colonoscopy Family History Family History Mother Glioblastoma Social History Social History Household Members: None Housing: House Do you presently have visiting nurse or other home services: No Alcohol intake: current Alcohol intake frequency: does not drink Comment: sleeping Smoked in Last 30 Days: No Use of substances other than those prescribed or required for medical reasons: No Advance Directives: Yes Advance Directives on File: Yes Advance Directives Date on File: 05/17/24 Do you have a plan to hurt others: No Plan service: No Current occupational status: retired Physical Exam ED Vital Signs: Vital Signs - 24 hr 05/17/24 08:05 05/17/24 09:46 05/17/24 09:46 Temperature 98.6 F Pulse Rate 73 61 68 Respiratory Rate 16 18 18 Blood Pressure 154/84 H Pulse Oximetry 97 Oxygen Delivery Method Room Air 05/17/24 12:04 Temperature 97.1 F Pulse Rate 69 Respiratory Rate 14 Blood Pressure 136/63 Pulse Oximetry 95 Oxygen Delivery Method Room Air BMI result Body Mass Index 17.2 Vital signs have been reviewed and appear to be correct. Blood pressure elevated. Heart rate normal. Respiratory rate normal. Temperature normal. Oxygen saturation normal. Const General: cooperative, healthy appearing and no acute distress Orientation/consciousness: oriented to person, oriented to place, oriented to time and patient oriented x3 Limitations: no limitations HENMT Head: Yes normocephalic and Yes atraumatic Ears: external ears normal General nose exam: Normal external nose present Face and sinus: Yes face symmetric Mouth: oropharynx normal and moist mucous membranes Throat: Yes uvula midline Eyes Pupils: Equal, round and reactive pupils present Neck Neck: Yes normal visual inspection and Yes supple Chest Chest palpation & inspection: crepitus rib right mid-axillary line involving the 10th rib, involving the 11th rib and involving the 12th rib and tenderness rib right mid-axillary line involving the 10th rib, involving the 11th rib and involving the 12th rib Resp Effort & Inspection: normal respiratory effort and able to speak in complete sentences Auscultation: clear to auscultation bilaterally Cardio Rate: regular rate Rhythm: regular rhythm Heart sounds: S1 normal heart sound present and S2 normal heart sound present GI Palpation (GI): Soft to palpation and nontender Auscultation: normoactive bowel sounds General: Yes no CVA tenderness Back/Spine/Pelvis Back: no CVA tenderness Skin General skin exam: elasticity normal and turgor normal Neuro General: oriented to person, oriented to place, oriented to time, patient oriented x3, moves all extremities, no focal motor deficits and CN's II-XI intact bilaterally Cranial nerves: Yes Equal, round and reactive pupils present Cognition (Neuro): normal cognition Extrem General: Yes full ROM, Yes no pedal edema and Yes no calf tenderness Psych Mental Status: mental status grossly normal Affect: normal affect Thought process: Normal thought process present Medications Administered Discontinued Medications Generic Name Dose Route Start Last Admin Trade Name Lizbeth PRN Reason Stop Dose Admin Oxycodone HCl 5 mg 05/17/24 08:50 05/17/24 09:24 Oxycodone Hcl Immed Release 5 Mg Tablet PO 05/17/24 08:51 5 mg ONCE ONE Administration Medical Decision Making Medical Decision Making [facility] Narrative: Patient is an 84-year-old female with history of colitis presenting to the emergency department with complaint of right lower rib pain after a slip and fall yesterday afternoon. On exam patient is awake, A+Ox3, VS WNL, afebrile, normal neurological exam without focal deficits, physical exam findings as above. Given reported symptoms and physical exam findings, initial differential includes rib contusion versus fracture, pneumothorax, UTI, viral illness, electrolyte abnormality. Less likely ICH, skull or cervical vertebral fracture or subluxation. Labs unremarkable. Urinalysis is without evidence of infection viral serology negative. X-ray notable for mildly displaced fracture of 9th right rib. CT head and c-spine notable for no acute abnormalities. My interpretation is in agreement with the radiologist's interpretation. Patient and family updated on results. Daughter in law states patient would prefer to remain at home, but could use some VNA assistance, patient echoes this. PT and CM consults ordered. Patient placed on physician observation at 12:30. Differential Diagnosis Differential Diagnoses: The differential diagnosis associated with the presentation includes As per [facility] Admission/Observation Consideration of admission/observation: Escalation of care including admission/observation considered Patient would have been admitted to the hospital had their work up had any findings where hospital admission was appropriate and their clinical presentation warranted hospital admission. Lab Data [facility] Lab Attestation statement: I reviewed the patient's lab results. As per [facility] 05/17/24 09:30 05/17/24 09:30 Labs: Lab Results 05/17/24 05/17/24 Range/Units 09:30 10:24 WBC 5.8 (4.8-10.8) X10*3/uL RBC 4.37 (4.20-5.50) X10*6/uL Hgb 13.9 (12.0-16.0) g/dl Hct 40.9 (37.0-47.0) % MCV 93.6 (80.0-98.0) fL MCH 31.8 (27.0-33.0) pg MCHC 34.0 (31.0-35.0) g/dl RDW 13.6 (11.0-16.0) % Plt Count 192 (160-400) X10*3/uL MPV 9.5 (9.4-12.3) fL Immature Gran % (Auto) 0.3 (0.0-0.4) % Neut % (Auto) 66.7 (45-73) % Lymph % (Auto) 20.8 (20-40) % Robertson % (Auto) 10.8 (2-11) % Eos % (Auto) 0.2 (0-4) % Baso % (Auto) 1.2 (0-2) % Lymph # (Auto) 1.2 (1.2-4.9) X10*3/uL Robertson # (Auto) 0.6 (0.1-1.2) X10*3/uL Eos # (Auto) 0.0 (0.0-0.4) X10*3/uL Baso # (Auto) 0.1 (0.0-0.2) X10*3/uL Abs Immat Gran (auto) 0.02 (0.00-0.03) X10*3/uL Absolute Neuts (auto) 3.8 (2.0-8.3) x10*3/uL Absolute Nucleated RBC 0.000 (0.0-0.012) X10*3/uL Nucleated RBC % (auto) 0.0 (0.0-0.2) /100WBC Sodium 142 (135-145) mmol/L Potassium 4.1 (3.3-5.1) mmol/L Chloride 105 (96-108) mmol/L Carbon Dioxide 30 H (22-29) mmol/L Anion Gap 11 L (12-20) BUN 11 (9-16) mg/dL Creatinine 0.73 (0.5-1.4) mg/dL Estim Creat Clear Calc 40.3 Estimated GFR > 60 Random Glucose 114 (60-115) mg/dL Calcium 9.4 D (8.4-10.2) mg/dL Total Bilirubin 1.4 H (0.0-1.0) mg/dL AST 23 (5-31) U/L ALT 15 (0-31) U/L Alkaline Phosphatase 42 (39-117) U/L Troponin I High Sens < 2.7 (<3.5-17.0) ng/L Total Protein 6.4 L (6.5-8.0) g/dL Albumin 4.0 (3.5-5.0) g/dL Urine Color Yellow Urine Appearance Clear Urine pH 7.0 (5.0-9.0) Ur Specific Weston 1.010 (1.005-1.025) Urine Protein Negative (Neg-Trace) mg/dL Urine Glucose (UA) Negative (Negative) mg/dL Urine Ketones Trace (Negative) mg/dL Urine Blood Negative (Negative) Urine Nitrite Negative (Negative) Ur Leukocyte Esterase Negative (Negative) Influenza Type A (PCR) NEGATIVE (Negative) Influenza Type B (PCR) NEGATIVE (Negative) RSV RNA Qual (PCR) NEGATIVE (Negative) SARS-CoV-2 RNA (RT-PCR) NEGATIVE (Negative) Independent Interpretation I performed an independent interpretation of an: Plain X-Ray and CT Scan Interpretation: X-ray notable for mildly displaced fracture of 9th right rib. CT head and c-spine notable for no acute abnormalities. Radiology Impression Discussion of test interpretation with radiology: I have reviewed the radiologist's reading. Radiologist Impression: XR/XR ribs RT min 3V w CXR1V IMPRESSION: *Mildly displaced transverse fracture of the posterior lateral segment of the right ninth rib. *No pleural effusions or pneumothoraces. No acute cardiopulmonary abnormalities. CT/CT head/brain wo IV con IMPRESSION: CT head: *No acute intracranial abnormalities. *Chronic dystrophic 1.2 cm intraparenchymal calcification within the left inferior frontal lobe unchanged compared with 11/12/2022. *Bilateral moderate diffuse global cerebral parenchymal volume loss. CT cervical spine: *No acute abnormalities identified. 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 These fractures were present on the comparison study of 11/12/2022. *Multilevel chronic spondylosis of the cervical spine. Independent Historian Clinical information obtained from an independent historian. History obtained from or confirmed by: Other (daughter in law) External Record Review External record reviewed: Inpatient record, Office record and Outpatient record Discharge Plan Discharge Clinical Impression: Fracture of rib Qualifiers: Encounter type: initial encounter Rib fracture type: single rib Fracture type: closed Laterality: right Qualified Code(s): S22.31XA - Fracture of one rib, right side, initial encounter for closed fracture Patient Disposition: Still a Patient Prescriptions: No Action multivitamin Tablet 1 tab PO DAILY aspirin 81 mg Tablet,Delayed Release (Dr/Ec) 81 mg PO DAILY pravastatin 20 mg tablet 20 mg PO DAILY ezetimibe 10 mg tablet 10 mg PO DAILY levofloxacin 500 mg tablet 500 mg PO DAILY Qty: 7 0RF metronidazole [Flagyl] 500 mg tablet 500 mg PO BID Qty: 14 0RF Referrals: Ashwin Phoenix MD [Primary Care Provider] - Print Language: Uzbek
--- NOTE | 2024-05-17 08:50 | ECG_ITS ---
Test Reason : CHEST PAIN Blood Pressure : / mmHG Vent. Rate : 063 BPM Atrial Rate : 063 BPM P-R Int : 144 ms QRS Dur : 080 ms QT Int : 434 ms P-R-T Axes : 062 -09 096 degrees QTc Int : 444 ms Normal sinus rhythm Possible Left atrial enlargement Nonspecific T wave abnormality Abnormal ECG When compared with ECG of 12-NOV-2022 11:32, ST no longer depressed in Lateral leads T wave inversion less evident in Anterolateral leads Referred By: Evelyne Mcdonald Electronically Signed By:Rodger Brown
--- NOTE | 2024-05-17 09:14 | PC.NURSE ---
pt returning from radiology now
[2024-05-17] MEDS: oxyCODONE HCl Immed Release 5 MG TABLET PO (09:24)
[2024-05-17 09:37] LABS: MANUAL DIFF FLAG NO
[2024-05-17 09:40] LABS: Basophils Absolute Auto 0.1 X10*3/uL (0.0-0.2); Basophils Percent Auto 1.2 % (0-2); Eosinophils Percent Auto 0.2 % (0-4); Hematocrit 40.9 % (37.0-47.0); Hemoglobin 13.9 g/dl (12.0-16.0); Imm Gran Abs Auto 0.02 X10*3/uL (0.00-0.03); Imm Gran Pct Auto 0.3 % (0.0-0.4); Lymphocytes Absolute Auto 1.2 X10*3/uL (1.2-4.9); Lymphocytes Percent Auto 20.8 % (20-40); Mean Corpuscular Hemoglobin 31.8 pg (27.0-33.0); Mean Corpuscular Volume 93.6 fL (80.0-98.0); Mean Platelet Volume 9.5 fL (9.4-12.3); Monocytes Absolute Auto 0.6 X10*3/uL (0.1-1.2); Monocytes Percent Auto 10.8 % (2-11); Neutrophils Absolute Auto 3.8 x10*3/uL (2.0-8.3); Neutrophils Percent Auto 66.7 % (45-73); Platelet Count 192 X10*3/uL (160-400); Red Blood Count 4.37 X10*6/uL (4.20-5.50); Red Cell Distribution Width 13.6 % (11.0-16.0); White Blood Count 5.8 X10*3/uL (4.8-10.8)
[2024-05-17 09:46] VITALS: PULSE 61; PULSE 68; RESP 18
[2024-05-17 09:56] LABS: Alanine Aminotransferase 15 U/L (0-31); Alkaline Phosphatase 42 U/L (39-117); Anion Gap 11 (12-20); Aspartate Amino Transferase 23 U/L (5-31); Bilirubin Total 1.4 mg/dL (0.0-1.0); Blood Urea Nitrogen 11 mg/dL (9-16); Calcium 9.4 mg/dL (8.4-10.2); Carbon Dioxide 30 mmol/L (22-29); Chloride 105 mmol/L (96-108); Creatinine Clr Calc Pharmacy 40.3; Estimated Glomerular Filt Rate > 60; Glucose Random 114 mg/dL (60-115); Potassium 4.1 mmol/L (3.3-5.1); Sodium 142 mmol/L (135-145); Total Protein 6.4 g/dL (6.5-8.0)
[2024-05-17 10:03] LABS: Troponin-I High Sensitivity < 2.7 ng/L (<3.5-17.0)
[2024-05-17 10:16] LABS: Influenza A PCR NEGATIVE (Negative); Influenza B PCR NEGATIVE (Negative); Resp Syncy Virus RNA Qual PCR NEGATIVE (Negative); SARS COV2 PCR INHOUSE NEGATIVE (Negative)
[2024-05-17 10:35] LABS: Appearance Urine Clear; Color Urine Yellow; Glucose Urine UA Negative (Negative); Leukocyte Esterase Urine Negative (Negative); Nitrite Urine Negative (Negative); Urine Blood Negative (Negative); Urine Ketones Trace mg/dL (Negative); Urine Protein Negative (Neg-Trace)
[2024-05-17 12:04] VITALS: BP 136/63; PULSE 69; RESP 14; TEMP 36.2; O2SAT 95
[2024-05-17 14:41] VITALS: BP 147/72; PULSE 67; O2SAT 97
[2024-05-17 15:07] VITALS: BP 147/72; PULSE 67; RESP 15; TEMP 36.4; O2SAT 97
--- NOTE | 2024-05-17 15:53 | MHC.CM.ED ---
Received case management consult from Evelyne MILLER. Patient came to the ER due to a fall. Found to have right 9th rib fx. Physical therapy eval completed. Home with services is recommended. Met with patient and [id number], Harini. Patient lives in two family house. Patient lives on 2nd floor. Granddaughter, Kellie lives on the 1st floor. Patient's other granddaughter, Pennie lives cross the street. Patient has a walker at home. No other services. PCP verified. Copy of HCP obtained from [facility]. Patient agreeable to referral to [facility] for residential and physical therapy. Patient and Harini also interested in referral to [facility] for any additional services at home. Referral made to both via [facility]. Harini will transport patient home. Evelyne MILLER aware. Continue to monitor for d/c needs.,
[2024-05-17 16:28] VITALS: BP 147/72; PULSE 67; RESP 15; TEMP 36.4; O2SAT 97
== END 2024-05-17 16:29 | disposition home or self-care (01) ==
PROVIDERS: Registered Nurse Emergency; Emergency Provider Emergency Medicine; PCP Internal Medicine
DX: S22.31XA Fracture of one rib, right side, initial encounter for closed fracture (principal); W18.2XXA Fall in (into) shower or empty bathtub, initial encounter; Z03.818 Encounter for observation for suspected exposure to other biological agents ruled out; Y93.E1 Activity, personal bathing and showering; Y92.012 Bathroom of single-family (private) house as the place of occurrence of the external cause; Y99.9 Unspecified external cause status
CPT/HCPCS: 0241U; 36415; 70450; 71101; 72125; 80053; 81003; 84484; 85025; 93005; 97161; 99285

== ENCOUNTER → 2024-05-17 08:50 | Outpatient (BNV) | payer MEDICARE, SELFPAY | PROVIDERS: Emergency Provider Emergency Medicine; PCP Internal Medicine; Visit Provider Internal Medicine Cardiovascular Disease | DX: R07.9 Chest pain, unspecified (principal); R94.31 Abnormal electrocardiogram [ECG] [EKG] | CPT/HCPCS: 93010 ==

== ENCOUNTER 2024-12-12 14:03 | Emergency (ER) | payer MEDICARE, SELFPAY ==
--- NOTE | ~2024-12-12 | CT_ITS ---
CLINICAL HISTORY: fall, injury CT cervical spine without contrast Comparison: CT/SR - CT CERVICAL SPINE WO IV CON - 05/17/24 08:54 EST Findings: Normal vertebral body alignment. Multilevel degenerative disc disease and facet osteoarthritis. 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 No central canal stenosis. No acute cervical spine fracture. 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 No acute findings on limited view of the intracranial contents. Soft tissues of the neck are normal. Mild scarring at the lung apices. IMPRESSION: No acute cervical spine fracture. This document has been electronically signed by: Latisha Jackson MD on 12/12/2024 18:13:00
--- NOTE | ~2024-12-12 | CT_ITS ---
CLINICAL HISTORY: fall, injury CT thoracic spine without contrast Comparison: None provided Findings: Normal vertebral body alignment. No acute fractures or dislocations. Multilevel degenerative disc disease. No significant central canal narrowing. There is aneurysmal dilatation of the ascending aorta which measures 4.7 cm in diameter. Prior aortic valve replacement. No consolidation or pleural effusion. Upper abdominal contents unremarkable. IMPRESSION: 1. No acute thoracic spine fracture. 2. 4.7 cm aneurysm of the ascending aorta. This document has been electronically signed by: Latisha Jackson MD on 12/12/2024 18:06:00
--- NOTE | ~2024-12-12 | XR_ITS ---
CLINICAL HISTORY: pain, injury 3 view right elbow Comparison: None provided Findings: Bones intact. No dislocations. No significant arthritic change or erosions. No joint effusion. No radiopaque foreign body. IMPRESSION: 1. No acute findings. This document has been electronically signed by: Latisha Jackson MD on 12/12/2024 16:42:39
--- NOTE | ~2024-12-12 | CT_ITS ---
CLINICAL HISTORY: fall, injury CT lumbar spine without contrast Comparison: None provided Findings: Normal vertebral body alignment. No lumbar spine fracture. Multilevel degenerative disc disease. Facet osteoarthritis at L5-S1. No central canal stenosis. There is colonic diverticulosis. IMPRESSION: No acute lumbar spine fracture. This document has been electronically signed by: Latisha Jackson MD on 12/12/2024 18:02:49
--- NOTE | ~2024-12-12 | CT_ITS ---
CLINICAL HISTORY: fall, injury CT head without contrast Comparison: CT/SR - HEAD HEAD_CSPINE (ADULT) - 12/12/24 15:[address]/SR - CT HEAD/BRAIN WO IV CON - 05/17/24 08:54 EST Findings: Involutional change brain parenchyma, compatible with advanced age. 1.4 cm parenchymal calcification within the left frontal lobe without change. Mild white matter disease. No significant atrophy-like change or white matter disease. There is no sinus or mastoid fluid. The orbits are within normal limits. There is no acute fracture. IMPRESSION: No skull fracture or intracranial hemorrhage. This document has been electronically signed by: Latisha Jackson MD on 12/12/2024 18:10:26
--- NOTE | 2024-12-12 14:12 | ED.GENADULT ---
HPI - General Adult General Chief complaint: Fall Stated complaint: FALL WITH BACK PAIN Time Seen by Provider: 12/12/24 14:12 Source: patient and EMS Mode of arrival: EMS Limitations: physical limitation (patient is demented at baseline) History of Present Illness ED Provider: Ronna Lema PA-C HPI narrative: Patient is an 84 year old assigned female at with a history of dementia, aortic stenosis, aortic aneurysm, frequent falls, depression, anxiety, and progressive functional decline presenting to the emergency department today with back pain after a fall. Patient states that she was attempting to put a bottle in her trash can when she fell and hit her back. Patient denies any dizziness, lightheadedness, abdominal pain, nausea, vomiting, fever, chills, blurry vision, double vision, loss of vision, chest pain, difficulty breathing, shortness of breath, night sweats, pain with urination, increased urinary frequency, increased urinary urgency, blood in her urine or stool, syncope or a near syncopal episode, bowel incontinence, bladder incontinence, or any other complaints at this time. Relieving factors: none Exacerbating factors: none Associated symptoms: denies other symptoms Treatments prior to arrival: none Related Data Home Medications ?Medication ?Instructions ?Recorded ?Confirmed aspirin 81 mg tablet,delayed 81 mg PO DAILY 05/26/20 05/26/20 release ezetimibe 10 mg tablet 10 mg PO DAILY 05/26/20 05/26/20 multivitamin 1 tab PO DAILY 05/26/20 05/26/20 pravastatin 20 mg tablet 20 mg PO DAILY 05/26/20 05/26/20 Previous Rx's ?Medication ?Instructions ?Recorded levofloxacin 500 mg tablet 500 mg PO DAILY #7 tabs 05/29/20 metronidazole 500 mg tablet 500 mg PO BID #14 tabs 05/29/20 (Flagyl) lidocaine 5 % topical patch 1 patch topical DAILY #30 ea 05/17/24 Allergies Allergy/AdvReac Type Severity Reaction Status Date / Time No Known Allergies Allergy Verified 12/12/24 14:26 Review of Systems Constitutional: Constitutional: Reports no additional constitutional complaints, Denies chills, Denies fever(s) and Denies night sweats Eyes: Eyes: Reports no additional eye complaints, Denies blurry vision, Denies change in vision, Denies diplopia, Denies eye discharge, Denies loss of vision and Denies eye pain ENT: Denies dizziness Cardiovascular: Cardiovascular: Reports no additional cardiovascular complaints, Denies chest pain, Denies lightheadedness, Denies Loss of Consciousness and Denies dyspnea Respiratory: Respiratory: Reports no additional respiratory complaints and Denies dyspnea Gastrointestinal: Gastrointestinal: Reports no additional gastrointestinal complaints, Denies abdominal pain, Denies melena, Denies hematochezia, Denies change in bowel habits and Denies change in stool character Genitourinary: Genitourinary: Denies hematuria, Denies urinary frequency, Denies dysuria, Denies urinary incontinence, Denies urinary hesitancy and Denies urinary urgency Musculoskeletal: Musculoskeletal: Reports no additional musculoskeletal complaints, Reports back pain, Denies numbness and Denies tingling Neurologic: Denies dizziness, Denies loss of vision, Denies numbness and Denies tingling Psychiatric: Psychiatric: Reports no additional psychiatric complaints Endocrine: Endocrine: Reports no additional endocrine complaints Hematologic/Lymphatic: Hematologic/Lymphatic: Reports no additional hematologic/lymphatic complaints Allergic/Immunologic: Allergic/Immunologic: Reports no additional allergic/immunologic complaints PMFSH Past Medical History Attestation statement: The following information was validated with the patient. Source: old records reviewed and nursing notes reviewed Medical History Hx of aortic valve stenosis High cholesterol Surgical History Hx of colonoscopy H/O: hysterectomy H/O aortic valve repair Family History Family History Mother Glioblastoma Social History Social History Household Members: None Housing: House Do you presently have visiting nurse or other home services: No Alcohol intake: former Comment: sleeping Smoked in Last 30 Days: No Use of substances other than those prescribed or required for medical reasons: No Advance Directives: Yes Advance Directives Date on File: 05/17/24 Do you have a plan to hurt others: No Plan service: No Current occupational status: retired Physical Exam ED Vital Signs: Vital Signs - 24 hr 12/12/24 14:27 Temperature 97.5 F Pulse Rate 72 Respiratory Rate 18 Blood Pressure 133/68 Pulse Oximetry 95 Oxygen Delivery Method Room Air BMI result Body Mass Index 17.3 Const General: cooperative, no acute distress, alert and awake Nutritional Appearance: well nourished Orientation/consciousness: patient oriented x3 HENMT Head: Yes normal to inspection and Yes atraumatic Ears: hearing grossly normal bilaterally and external ears normal General nose exam: Normal external nose present, no nasal discharge noted and no epistaxis Face and sinus: Yes normal facial exam, No abrasion and No laceration Mouth: Normal oral and palatal mucosa present, no drooling and no muffled voice Eyes General: appearance normal, both eyes and all related structures Periorbital: periorbital findings normal Eyelids: Yes eyelids normal Conjunctivae: conjunctivae normal Pupils: Equal, round and reactive pupils present EOM: EOMs intact bilaterally Neck Neck: Yes normal visual inspection, Yes full ROM and Yes no lymphadenopathy Resp Effort & Inspection: normal respiratory effort and able to speak in complete sentences Back/Spine/Pelvis Other: Neuro General: patient oriented x3, moves all extremities and CN's II-XI intact bilaterally Cranial nerves: Yes Equal, round and reactive pupils present Cognition (Neuro): normal cognition Extrem General: Yes normal to inspection, Yes full ROM and Yes capillary refill normal Psych Appearance: grossly normal Mental Status: mental status grossly normal Affect: normal affect Attitude: cooperative Thought process: Normal thought process present Thought content: Normal thought content present Insight: Good insight present (Psych) Course Reevaluation(s) Reevaluation #1: I Dory Reyes PA-C have accepted care of the patient and signed out pending imaging and final disposition CT brain:MPRESSION: No skull fracture or intracranial hemorrhage. CT cervical spine: IMPRESSION: No acute cervical spine fracture. CT thoracic spine:IMPRESSION: 1. No acute thoracic spine fracture. 2. 4.7 cm aneurysm of the ascending aorta. CT lumbar spine:IMPRESSION: No acute lumbar spine fracture. X-ray elbow:3 view right elbow Comparison: None provided Findings: Bones intact. No dislocations. No significant arthritic change or erosions. No joint effusion. No radiopaque foreign body. IMPRESSION: 1. No acute findings. Medical Decision Making Medical Decision Making MDM Narrative: Patient is an 84 year old assigned female at with a history of dementia, aortic stenosis, aortic aneurysm, frequent falls, depression, anxiety, and progressive functional decline presenting to the emergency department today with back pain after a fall. Patient's physical exam was as noted in the physical exam portion of this note. Patient's right elbow x-ray showed no acute process. Patient's CT head, c-spine, thoracic spine, and lumbar spines are pending. I explained my physical exam findings as well as all test results to the patient. I answered all questions asked by the patient. Patient signed out to ADRIANE Fried pending CT head, c-spine, thoracic spine, and lumbar spine results. Differential Diagnosis Differential Diagnoses: The differential diagnosis associated with the presentation includes Fall Lumbar fracture Thoracic fracture Compression fracture Admission/Observation Consideration of admission/observation: Escalation of care including admission/observation considered Patient's disposition will be determined after radiology results. Independent Interpretation I performed an independent interpretation of an: Plain X-Ray Interpretation: My interpretation is in agreement with the radiologist's impression of this imaging study. CLINICAL HISTORY: pain, injury 3 view right elbow Comparison: None provided Findings: Bones intact. No dislocations. No significant arthritic change or erosions. No joint effusion. No radiopaque foreign body. IMPRESSION: 1. No acute findings. This document has been electronically signed by: Latisha Jackson MD on 12/12/2024 16:42:39 Dictated By: Latisha Jackson MD Signed By: Electronically signed by Latisha Jackson MD 12/12/24 9213 Radiology Impression Discussion of test interpretation with radiology: I have reviewed the radiologist's reading. Independent Historian Clinical information obtained from an independent historian. History obtained from or confirmed by: EMS (EMS provided additional history and confirmed the history provided by the patient.) Discharge Plan Discharge Clinical Impression: Fall Patient Disposition: Home, Self-Care Instructions: Fall Prevention for Older Adults (ED) Additional Instructions: The CT scan of your head, cervical spine, thoracic spine and lumbar spine were all negative for acute injury. The x-ray of the elbow was negative as well. You sustained an abrasion, or a scratch, over your central back. Keep it clean and dry, you can place a thin layer of bacitracin over the site. You can shower normally. You can use Motrin 600 mg taken every 6 hours with food for your discomfort. Follow up with your primary care provider as needed. Prescriptions: No Action multivitamin Tablet 1 tab PO DAILY aspirin 81 mg Tablet,Delayed Release (Dr/Ec) 81 mg PO DAILY pravastatin 20 mg tablet 20 mg PO DAILY ezetimibe 10 mg tablet 10 mg PO DAILY levofloxacin 500 mg tablet 500 mg PO DAILY Qty: 7 0RF metronidazole [Flagyl] 500 mg tablet 500 mg PO BID Qty: 14 0RF lidocaine 5 % adhesive patch,medicated 1 patch topical DAILY Qty: 30 0RF Rx Instructions: leave on most painful area for up to 12 hrs Print Language: Icelandic
[2024-12-12 14:24] VITALS: BP 142/65; PULSE 88; O2SAT 98; BMI 17.3
[2024-12-12 14:27] VITALS: BP 133/68; PULSE 72; RESP 18; TEMP 36.4; O2SAT 95
--- NOTE | 2024-12-12 14:27 | PC.NURSE ---
non adherent dressing placed on abrasion on patients back per patients request , PA aware
--- NOTE | 2024-12-12 18:37 | PC.NURSE ---
Patient removed c collar, educated on risks with family at bedside , does not want collar put back on
[2024-12-12 19:41] VITALS: BP 140/84; PULSE 91; RESP 16; TEMP 36.4; O2SAT 97
== END 2024-12-12 19:42 | disposition home or self-care (01) ==
PROVIDERS: Emergency Provider Emergency Medicine
DX: S20.224A Contusion of middle back wall of thorax, initial encounter (principal); M54.50 Low back pain, unspecified; M25.521 Pain in right elbow; R51.9 Headache, unspecified; X50.1XXA Overexertion from prolonged static or awkward postures, initial encounter; X50.9XXA Other and unspecified overexertion or strenuous movements or postures, initial encounter; Y93.9 Activity, unspecified; Y92.9 Unspecified place or not applicable; Y99.8 Other external cause status
CPT/HCPCS: 70450; 72125; 72128; 72131; 73080; 99284

== ENCOUNTER → 2024-12-12 14:49 | Outpatient (BNV) | payer MEDICARE, SELFPAY | PROVIDERS: Visit Provider Radiology Diagnostic Radiology | DX: M47.892 Other spondylosis, cervical region (principal); G89.11 Acute pain due to trauma; I71.21 Aneurysm of the ascending aorta, without rupture; G31.89 Other specified degenerative diseases of nervous system; M25.521 Pain in right elbow | CPT/HCPCS: 70450; 72125; 72128; 72131; 73080 ==

== ENCOUNTER 2024-12-15 08:03 | Emergency (ER) | payer MEDICARE, SELFPAY ==
--- NOTE | ~2024-12-15 | CT_ITS ---
CLINICAL HISTORY: fall [address] head without contrast Comparison: None provided Findings: There is a moderately large acute left-sided subdural hematoma, with a maximum depth of approximately 13 mm. There are 7 mm of rightward midline shift and effacement of the left lateral ventricle. Subdural hemorrhage extends along the falx and left tentorium. Nonspecific densely calcified left frontal mass measuring up to 12 mm. The orbits are within normal limits. No skull fracture. IMPRESSION: Moderately large left-sided subdural hematoma with approximately 7 mm of rightward midline shift. Close interval follow-up recommended. This document has been electronically signed by: Juve Hoyt MD on 12/15/2024 10:28:12
--- NOTE | 2024-12-15 08:05 | ED_ITS ---
HPI - General Adult General Chief complaint: Altered Mental Status Stated complaint: AMS,?LKW,FALL FRIDAY PER EMS Time Seen by Provider: 12/15/24 08:05 Source: patient, EMS, RN notes reviewed and old records reviewed Mode of arrival: EMS Limitations: altered mental status History of Present Illness ED Provider: Gabby Bell PA-C HPI narrative: 84 year old female with medical history of dementia, aortic stenosis, aortic aneurysm, frequent falls, depression, anxiety, and progressive functional decline presenting to the emergency department today with headache. Patient was seen in the department on 12/12 for unwitnessed fall and back pain. Patient received CT scan of head brain without any acute findings. 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 Patient seems cognitively aware, was able to state her full name, birthday, year, and knew where she was at, but does begin to ramble about things in the past when speaking with her. She is complaining of a throbbing frontal headache, she states she has not taken anything for the pain and is requesting ibuprofen. Denies chest pain, shortness of breath, nausea, vomiting, abdominal pain. Onset (ago): hour(s) Location: head Radiation: non-radiation Severity: moderate Quality: other (Throbbing) Pain Consistency: constant Relieving factors: none Associated symptoms: denies other symptoms Treatments prior to arrival: none Related Data Home Medications ?Medication ?Instructions ?Recorded ?Confirmed aspirin 81 mg tablet,delayed 81 mg PO DAILY 05/26/20 1 07/27/19 release ezetimibe 10 mg tablet 10 mg PO DAILY 05/26/2005/16 multivitamin 1 tab PO DAILY 05/26/2005/16 pravastatin 20 mg tablet 20 mg PO DAILY 05/26/2005/16 Previous Rx's ?Medication ?Instructions ?Recorded levofloxacin 500 mg tablet 500 mg PO DAILY #7 tabs metronidazole 500 mg tablet 500 mg PO BID #14 tabs (Flagyl) lidocaine 5 % topical patch 1 patch topical DAILY #30 ea 05/17/24 Allergies Allergy/AdvReac Type Severity Reaction Status Date / Time No Known Allergies Allergy Verified 12/15/24 08:19 Review of Systems 2 Review of Systems: CONST: Negative for fever, body aches and chills. HENT: Negative for neck pain/stiffness, congestion, sore throat, swelling. POS headache EYES: Negative for discharge/pain or vision changes. RESP: Negative for cough/hemoptysis and shortness of breath. CV: Negative chest pain, difficulty breathing, palpitations. ABD: Negative pain, nausea, vomiting. : Negative increase frequency, dysuria, blood in urine or stool. MUSC: Negative for muscle aches, edema. SKIN: Negative rash, lesions/sores. NEURO: Negative headache, dizziness, weakness. Yes all other systems are reviewed and are negative [facility] Past Medical History Attestation statement: The following information was validated with the patient. Source: old records reviewed and nursing notes reviewed Medical History Hx of aortic valve stenosis High cholesterol Surgical History Hx of colonoscopy H/O: hysterectomy H/O aortic valve repair Family History Family History Mother Glioblastoma Social History Social History Household Members: None Housing: House Do you presently have visiting nurse or other home services: No Alcohol intake: former Comment: sleeping Smoked in Last 30 Days: No Use of substances other than those prescribed or required for medical reasons: No Advance Directives: Yes Advance Directives on File: Yes Advance Directives Date on File: 05/17/24 service: No Current occupational status: retired Physical Exam ED Vital Signs: Vital Signs - 24 hr 12/15/24 08:11 12/15/24 10:00 12/15/24 10:15 Temperature 98.2 F Pulse Rate 75 73 77 Respiratory Rate 20 16 19 Blood Pressure 137/76 124/71 129/78 Pulse Oximetry 97 97 Oxygen Delivery Method Room Air Room Air 12/15/24 10:40 Temperature 98 F Pulse Rate 77 Respiratory Rate 20 Blood Pressure 121/76 Pulse Oximetry 96 Oxygen Delivery Method Room Air BMI result Body Mass Index 17.4 GENERAL APPEARANCE: ?AxOx3 patient has moments of confusion while talking and her thoughts/ideas will trail off, tired appearing, no acute distress. HEENT: ?NC, AT. MMM. EOMI, clear conjunctiva, oropharynx clear. NECK: ?Supple without lymphadenopathy.? No stiffness or restricted ROM. HEART:? Normal rate and regular rhythm, normal S1/S1, no m/r/g LUNGS:? CTAB, moving air well. No crackles or wheezes are heard. ABDOMEN: ?Soft, nontender, nondistended with good bowel sounds heard. BACK: No CVAT. There is a healing stage 3 ecchymosis over mid back from fall on 12/12 EXTREMITIES: ?Without cyanosis, clubbing or edema. NEUROLOGICAL: ?Grossly nonfocal. Alert and oriented, moving all 4 extremities. Gait not observed at this time. Skin: ?Warm and dry without any rash. Medications Administered Discontinued Medications Generic Name Dose Route Start Last Admin Trade Name Lizbeth PRN Reason Stop Dose Admin Ibuprofen 400 mg 12/15/24 08:17 12/15/24 08:53 Ibuprofen 400 Mg Tablet PO 12/15/24 08:18 400 mg ONCE ONE Administration Medical Decision Making Medical Decision Making MDM Narrative: 84 year old female with medical history of dementia, aortic stenosis, aortic aneurysm, frequent falls, depression, anxiety, and progressive functional decline presenting to the emergency department today with headache. Patient was seen in the department on 12/12 for unwitnessed fall and back pain. Patient received CT scan of head brain without any acute findings. 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 Patient seems cognitively aware, was able to state her full name, birthday, year, and knew where she was at, but does begin to ramble about things in the past when speaking with her. She is complaining of a throbbing frontal headache, she states she has not taken anything for the pain and is requesting ibuprofen. VSS, patient afebrile, BP 137/76, in no acute distress, nontoxic appearing. Patient is alert and oriented, is able to state her full name, birthday, year, knows where she is at. On physical exam there is a healing stage III ecchymosis over the mid back. Patient complaining of headache, no observed/palpated traumatic injuries of head/face. EKG normal sinus rhythm, T wave inversion in Lateral leads, will obtain trop to rule out ACS. Labs WNL. Awaiting UA and CT head/brain. Patient medicated with 400mg Ibuprofen Course 9:36- Initial troponin WNL, EKG without ST elevation/depression. Awaiting UA and CT head/brain. 10:47- CT head/brain reveals moderately large left-sided subdural hematoma, with 7 mm of rightward midline shift and effacement of the left lateral ventricle. Subdural hemorrhage extends along the falx and left tentorium. I reached out to [facility] trauma/ED and spoke with Dr. Black who accepted patient as an ED to ED transfer. Patient head of bed was elevated, BP stable at this time 1:20 a.m. , pulse rate 77, 96% on room air. Patient not currently on IV meds, we will be transferred as a S ambulance. Differential Diagnosis Differential Diagnoses: The differential diagnosis associated with the presentation includes ICH electrolyte abnormality Dysrhythmia Tension headache Admission/Observation Consideration of admission/observation: Escalation of care including admission/observation considered Lab Data MDM Lab Attestation statement: I reviewed the patient's lab results. 12/15/24 08:34 12/15/24 08:34 Labs: Lab Results 12/15/24 Range/Units 08:34 WBC 6.9 (4.8-10.8) X10*3/uL RBC 4.05 L (4.20-5.50) X10*6/uL Hgb 12.8 (12.0-16.0) g/dl Hct 37.2 (37.0-47.0) % MCV 91.9 (80.0-98.0) fL MCH 31.6 (27.0-33.0) pg MCHC 34.4 (31.0-35.0) g/dl RDW 14.0 (11.0-16.0) % Plt Count 183 (160-400) X10*3/uL MPV 9.9 (9.4-12.3) fL Immature Gran % (Auto) 0.3 (0.0-0.4) % Neut % (Auto) 67.9 (45-73) % Lymph % (Auto) 17.1 L (20-40) % Thomas % (Auto) 12.2 H (2-11) % Eos % (Auto) 1.5 (0-4) % Baso % (Auto) 1.0 (0-2) % Lymph # (Auto) 1.2 (1.2-4.9) X10*3/uL Thomas # (Auto) 0.8 (0.1-1.2) X10*3/uL Eos # (Auto) 0.1 (0.0-0.4) X10*3/uL Baso # (Auto) 0.1 (0.0-0.2) X10*3/uL Abs Immat Gran (auto) 0.02 (0.00-0.03) X10*3/uL Absolute Neuts (auto) 4.7 (2.0-8.3) x10*3/uL Absolute Nucleated RBC 0.000 (0.0-0.012) X10*3/uL Nucleated RBC % (auto) 0.0 (0.0-0.2) /100WBC Sodium 143 (135-145) mmol/L Potassium 3.7 (3.3-5.1) mmol/L Chloride 107 (96-108) mmol/L Carbon Dioxide 29 (22-29) mmol/L Anion Gap 11 L (12-20) BUN 12 (9-16) mg/dL Creatinine 0.61 (0.5-1.4) mg/dL Estim Creat Clear Calc 49.0 Estimated GFR > 60 Random Glucose 114 (60-115) mg/dL Calcium 9.1 (8.4-10.2) mg/dL Magnesium 2.0 (1.6-2.6) mg/dL Total Bilirubin 0.9 (0.0-1.0) mg/dL AST 25 (5-31) U/L ALT 13 (0-31) U/L Alkaline Phosphatase 43 (39-117) U/L Troponin I High Sens 3.6 (<3.5-17.0) ng/L Total Protein 6.5 (6.5-8.0) g/dL Albumin 3.9 (3.5-5.0) g/dL Independent Interpretation I performed an independent interpretation of an: EKG and CT Scan Interpretation: I independently interpreted the EKG Vent. Rate : 75 BPM Atrial Rate : 75 BPM P-R Int : 150 ms QRS Dur : 80 ms QT Int : 386 ms P-R-T Axes : * -14 131 degrees QTcB Int : 431 ms Normal sinus rhythm Left ventricular hypertrophy with repolarization abnormality ( Ko product ) Abnormal ECG When compared with ECG of 17-May-2024 09:31, ST now depressed in Lateral leads T wave inversion more evident in Lateral leads Radiology Impression Discussion of test interpretation with radiology: I have reviewed the radiologist's reading. Radiologist Impression: Official read report of CT head/brain: Findings: There is a moderately large acute left-sided subdural hematoma with a maximum depth of approximately 13 mm There are 7 mm of rightward midline shift and effacement of the left lateral ventricle. Subdural hemorrhage extends along the falx and left tentorium. Nonspecific densely calcified left frontal mass measuring up to 12 mm The orbits are within normal limits No skull fracture Impression: Moderately large left-sided subdural hematoma with approximately 7 mm of rightward midline shift. Close interval follow up recommended. Electronically signed on December 15, 2024, 10:28:12 AM by Guillermo Hoyt MD External Record Review External record reviewed: Inpatient record, Office record and Outpatient record Prescription Management I considered prescription management with: Pain Medication I attempted to medicate patient with Tylenol, patient requested ibuprofen as Tylenol does not work for her. Chronic Conditions Patient?s care impacted by: Hypertension and Other (AMS, dementia, aortic stenosis, aortic aneurysm, ) Critical Care Time Critical Care Time Critical Care Time: Yes Total Critical Care Time: 67 Attestation: I have personally provided 67 minutes of critical care time exclusive of time spent on separately billable procedures. Time includes review of lab data, radiology results, discussion with consultants, and monitoring for potential decompensation. Intervention performed as documented. Discharge Plan Discharge Clinical Impression: Acute subdural hematoma Patient Disposition: [facility] Transfer Details: ED to ED transfer to [facility] MD Dr. Black Prescriptions: No Action multivitamin Tablet 1 tab PO DAILY aspirin 81 mg Tablet,Delayed Release (Dr/Ec) 81 mg PO DAILY pravastatin 20 mg tablet 20 mg PO DAILY ezetimibe 10 mg tablet 10 mg PO DAILY levofloxacin 500 mg tablet 500 mg PO DAILY Qty: 7 0RF metronidazole [Flagyl] 500 mg tablet 500 mg PO BID Qty: 14 0RF lidocaine 5 % adhesive patch,medicated 1 patch topical DAILY Qty: 30 0RF Rx Instructions: leave on most painful area for up to 12 hrs Print Language: Pashto
[2024-12-15 08:11] VITALS: BP 137/76; BP 142/83; PULSE 70; PULSE 75; RESP 20; TEMP 36.8; O2SAT 97; BMI 17.4
--- NOTE | 2024-12-15 08:13 | ECG_ITS ---
Test Reason : altered mental Blood Pressure : */* mmHG Vent. Rate : 75 BPM Atrial Rate : 75 BPM P-R Int : 150 ms QRS Dur : 80 ms QT Int : 386 ms P-R-T Axes : * -14 131 degrees QTcB Int : 431 ms Normal sinus rhythm Left ventricular hypertrophy with repolarization abnormality ( Henefer product ) Abnormal ECG When compared with ECG of 17-May-2024 09:31, ST now depressed in Lateral leads T wave inversion more evident in Lateral leads Referred By: Arabella Pierre Electronically Signed By: HAYES CRESPO MD
[2024-12-15 08:37] LABS: MANUAL DIFF FLAG NO
[2024-12-15 08:44] LABS: Hematocrit 37.2 % (37.0-47.0); Hemoglobin 12.8 g/dl (12.0-16.0); Imm Gran Abs Auto 0.02 X10*3/uL (0.00-0.03); Imm Gran Pct Auto 0.3 % (0.0-0.4); Lymphocytes Absolute Auto 1.2 X10*3/uL (1.2-4.9); Mean Corpuscular HGB Conc 34.4 g/dl (31.0-35.0); Mean Corpuscular Hemoglobin 31.6 pg (27.0-33.0); Mean Corpuscular Volume 91.9 fL (80.0-98.0); NRBC Abs Auto 0.000 X10*3/uL (0.0-0.012); NRBC Pct Auto 0.0 /100WBC (0.0-0.2); Platelet Count 183 X10*3/uL (160-400); Red Blood Count 4.05 X10*6/uL (4.20-5.50); White Blood Count 6.9 X10*3/uL (4.8-10.8)
--- NOTE | 2024-12-15 08:47 | PC.NURSE ---
pt to ED from home with reports of AMS with unk LKWT. Per EMS fmkale states that pt is usually AOx4, but today she was not acting herself - not wearing he usual clothes and talking about people from 30 years ago. IN ED pt is very anxious, somewhat tearful and tremulous. Pt remembered the nurse she saw the other day when she was here for a fall. Reporting headache pain. plan for EKG, labs, CT scan
[2024-12-15 08:55] LABS: Alanine Aminotransferase 13 U/L (0-31); Albumin Level 3.9 g/dL (3.5-5.0); Alkaline Phosphatase 43 U/L (39-117); Anion Gap 11 (12-20); Aspartate Amino Transferase 25 U/L (5-31); Blood Urea Nitrogen 12 mg/dL (9-16); Calcium 9.1 mg/dL (8.4-10.2); Carbon Dioxide 29 mmol/L (22-29); Chloride 107 mmol/L (96-108); Creatinine Clr Calc Pharmacy 49.0; Estimated Glomerular Filt Rate > 60; Magnesium 2.0 mg/dL (1.6-2.6); Potassium 3.7 mmol/L (3.3-5.1); Sodium 143 mmol/L (135-145); Total Protein 6.5 g/dL (6.5-8.0)
[2024-12-15 09:02] LABS: Troponin-I High Sensitivity 3.6 ng/L (<3.5-17.0)
--- OUTSIDE RECORDS SUMMARY | 2024-12-15 09:34 | XMS_ITS | Patient Health Record ---
[facility] Address [address] [place] [address] Care Team Providers Care Plant Buyer Name Role Phone Lizett Ashwin Primary Care Provider Carlyle Daigle Unavailable [phone] Allergies No Known Allergies Reason For Referral No Information Medications Medication SIG (Take, Route, Frequency, Duration) Notes Start Date End Date Status Voltaren 1 % as directed Externally Active Pravastatin Sodium 20 MG 1 tablet Orally Once a day; Duration: 30 day(s) Active Zetia 10 MG 1 tablet Orally Once a day; Duration: 30 day(s) Active Social History Tobacco Use: Social History Observation Description Date Details (start date - stop date) Never Smoker NA - NA Tobacco Use/Smoking Question Answer Notes Are you a: nonsmoker Alcohol Screen Question Answer Notes Did you have a drink containing alcohol in the p ast year? No Points 0 Interpretation Negative Tobacco use other than smoking: Question Answer Notes Are you an other tobacco user? No Problems Problem Type SNOMED Code ICD Code Onset Dates Problem Status W/U Status Risk Notes Problem Acquired hallux valgus (96289143) Hallux valgus (acquired), left foot (M20.12) Active confirmed Problem Acquired hallux valgus (99605060) Hallux valgus (acquired), right foot (M20.11) Active confirmed Problem Ataxic gait (93128803) Ataxic gait (R26.0) Active confirmed Problem Acquired hammer toe of left foot (1543234539390 103) Other hammer toe(s) (acquired), left foot (M20.42) Active confirmed Plan Of Treatment Pending Test Test Name Order Date X ray : Foot, left 3V 10/28/2022 X ray : Foot, right 3V 10/28/2022 Insurance Providers Payer Name Payer Address Payer Phone Subscriber Number Group Number Insured Name Patient Relationship to Insured Coverage Start Date Coverage End Date Medicare National [employer] [address] [place] [phone] [id number] Latrice Sales Self - patient is the insured [employer] [address] [place] [address] [phone] [id number] Latrice Sales Self - patient is the insured Medical (General) History Medical History History ICD Code Measles Chicken pox Surgical History Surgery Date(Month/Year) heart valve replacement
--- OUTSIDE RECORDS SUMMARY | 2024-12-15 09:34 | XMS_ITS | Patient Health Record ---
Author Organization [facility] Address [address] [place] [address] Care Team Providers Care Lap Cutter Name Role Phone Joaquim Tellez MD Primary Care Provider Alex Mesa Unavailable [phone] Reason For Referral No Information Medications Medication SIG (Take, Route, Frequency, Duration) Notes Start Date End Date Status One Daily For Women 1 1 TABLET Orally ONCE A DAY Active Zetia 10 MG 1 tablet Orally Once a day Active Aspir-81 81 MG 1 tablet Orally Once a day Active Pravastatin Sodium 20 MG 1 tablet Orally Once a day Active Problems Problem Type SNOMED Code ICD Code Onset Dates Problem Status W/U Status Risk Notes Problem [id number] Heme + stool (R19.5) Active confirmed Plan Of Treatment Future Test Test Name Order Date COLONOSCOPY 01/30/2016 Insurance Providers Payer Name Payer Address Payer Phone Subscriber Number Group Number Insured Name Patient Relationship to Insured Coverage Start Date Coverage End Date MEDICARE OF [place] [address] [place] [address] [id number] LEIGHTON NGUYEN Self - patient is the insured [employer] CLAIMS [address] [place] [phone] [id number] LEIGHTON NGUYEN Self - patient is the insured Medical (General) History Medical History History ICD Code Denies DE,DM,CVA,Lung disease,renal dise ase Mild incontinence Hyperlipidemia Surgical History Surgery Date(Month/Year) JAYA Aortic valve replacement-Bovine--2008 [facility]
[2024-12-15 10:00] VITALS: BP 124/71; PULSE 73; RESP 16; O2SAT 97
[2024-12-15 10:15] VITALS: BP 129/78; PULSE 77; RESP 19
[2024-12-15 10:40] VITALS: BP 121/76; PULSE 77; RESP 20; TEMP 36.6; O2SAT 96
--- NOTE | 2024-12-15 11:20 | PC.NURSE ---
report given to RN at [facility] flow box.
[2024-12-15 11:23] VITALS: BP 133/74; PULSE 75; RESP 16; O2SAT 95
[2024-12-15 11:34] VITALS: BP 133/74; PULSE 75; RESP 16; TEMP 36.7; O2SAT 95
== END 2024-12-15 11:37 | disposition short-term general hospital (02) ==
PROVIDERS: Emergency Provider Emergency Medicine Emergency Medical Services; PCP Internal Medicine
DX: S06.5XAA Traumatic subdural hemorrhage with loss of consciousness status unknown, initial encounter (principal); S30.0XXA Contusion of lower back and pelvis, initial encounter; Y93.9 Activity, unspecified; R51.9 Headache, unspecified; E78.00 Pure hypercholesterolemia, unspecified; Z79.82 Long term (current) use of aspirin; Z79.02 Long term (current) use of antithrombotics/antiplatelets; Z79.899 Other long term (current) drug therapy; X58.XXXA Exposure to other specified factors, initial encounter; Y92.099 Unspecified place in other non-institutional residence as the place of occurrence of the external cause; Y99.9 Unspecified external cause status
CPT/HCPCS: 36415; 70450; 80053; 83735; 84484; 85025; 93005; 99285; 99291

== ENCOUNTER → 2024-12-15 08:12 | Outpatient (BNV) | payer MEDICARE, SELFPAY | PROVIDERS: Emergency Provider Emergency Medicine Emergency Medical Services; PCP Internal Medicine; Visit Provider Radiology Vascular & Interventional Radiology | DX: S06.5XAA Traumatic subdural hemorrhage with loss of consciousness status unknown, initial encounter (principal); W19.XXXA Unspecified fall, initial encounter | CPT/HCPCS: 70450 ==

== ENCOUNTER → 2024-12-15 08:13 | Outpatient (BNV) | payer MEDICARE, SELFPAY | PROVIDERS: Emergency Provider Emergency Medicine Emergency Medical Services; PCP Internal Medicine; Visit Provider Internal Medicine Cardiovascular Disease | DX: I51.7 Cardiomegaly (principal) | CPT/HCPCS: 93010 ==